=== PATIENT | female | born 1985 | race American Indian/Alaskan Native ===

== ENCOUNTER 2016-12-18 08:47 | Emergency (ER) | payer MEDICAID ==
[2016-12-18 09:20] LABS: Basophils % (Auto) 0.2 % (0.0-1.8); Eosinophils % (Auto) 1.9 % (0.0-4.3); Hematocrit 39.6 % (30.3-42.9); Hemoglobin 12.9 gm/dl (10.1-14.3); Mean Corpuscular HGB Conc 33 % (30-34); Mean Corpuscular Hemoglobin 28 pg (28-32); Mean Corpuscular Volume 84 fl (79-97); Red Blood Count 4.71 M/mm3 (3.65-5.03); White Blood Count 6.5 K/mm3 (4.5-11.0)
[2016-12-18 09:22] LABS: Red Cell Distribution Width 22.8 % (13.2-15.2)
--- NOTE | 2016-12-18 09:34 | Emergency Department Report ---
ED General Adult HPI - General Chief complaint: Alcohol Stated complaint: MARIANNA Time Seen by Provider: 12/18/16 09:12 Source: patient, EMS (ems notes not available at time of chart dictation) Mode of arrival: Stretcher Limitations: Other (patient is intoxicated) - History of Present Illness Initial comments: This is a 31-year-old female, previously unknown sleep. Has a past medical history of thrombocytopenia, alcohol dependence, nonspecific transaminitis. Patient presents to the ER requesting alcohol detox. She reports that she consumes every day. Last drink was this morning. She is not homicidal. She is not suicidal. She has no chest pain or abdominal pain. She has chronic lower back pain. She complains of throat pain. Positive cough. No fever. Denies coingestions. Patient was admitted to the hospital in December 2015, was found to have persistent sinus tachycardia, and macrocytosis , as well as thrombocytopenia, all surmised to be in the context of her chronic alcohol consumption. -: Gradual Quality: aching (throat) Improves with: none Worsens with: none Associated Symptoms: cough - Related Data Previous Rx's Medication Instructions Recorded Last Taken Type Citalopram Hydrobromide [celeXA] 20 mg PO QDAY #30 tablet 01/07/15 Unknown Rx traZODone [Desyrel] 50 mg PO QHS #30 tablet 01/07/15 Unknown Rx Permethrin 5% [Acticin 5% CREAM] 1 applicatio TP ONCE #2 tube 12/18/16 Unknown Rx chlordiazePOXIDE [Librium] 25 mg PO Q8H PRN #15 capsule 12/18/16 Unknown Rx Allergies Allergy/AdvReac Type Severity Reaction Status Date / Time No Known Allergies Allergy Unverified 01/03/15 05:56 ED Review of Systems ROS: Stated complaint: MARIANNA Other details as noted in HPI Constitutional: denies: fever Eyes: denies: vision change ENT: throat pain, congestion. denies: epistaxis Respiratory: denies: cough Cardiovascular: denies: chest pain Gastrointestinal: denies: abdominal pain, nausea, diarrhea Genitourinary: denies: urgency, dysuria, discharge Musculoskeletal: back pain Skin: lesions Psychiatric: denies: homicidal thoughts, suicidal thoughts ED Past Medical Hx - Past Medical History Previous Medical History?: Yes Hx Congestive Heart Failure: No Hx Diabetes: No Hx Psychiatric Treatment: Yes (ETOH abuse) Hx Asthma: No Hx COPD: No Hx HIV: No (pt requested HIV test) - Surgical History Past Surgical History?: No Additional Surgical History: CS/ NOSE SURGERY - Social History Smoking Status: Current Every Day Smoker Substance Use Type: Alcohol - Medications Home Medications: Home Medications Medication Instructions Recorded Confirmed Last Taken Type Citalopram Hydrobromide [celeXA] 20 mg PO QDAY #30 tablet 01/07/15 Unknown Rx traZODone [Desyrel] 50 mg PO QHS #30 tablet 01/07/15 Unknown Rx Permethrin 5% [Acticin 5% CREAM] 1 applicatio TP ONCE #2 tube 12/18/16 Unknown Rx chlordiazePOXIDE [Librium] 25 mg PO Q8H PRN #15 capsule 12/18/16 Unknown Rx ED Physical Exam - General Limitations: No Limitations General appearance: alert, in no apparent distress - Head Head exam: Present: atraumatic, normocephalic - Eye Eye exam: Present: normal appearance, EOMI. Absent: nystagmus - ENT ENT exam: Present: normal exam, normal orophraynx, mucous membranes moist, normal external ear exam - Neck Neck exam: Present: normal inspection, full ROM. Absent: tenderness, meningismus - Respiratory Respiratory exam: Present: normal lung sounds bilaterally. Absent: respiratory distress, wheezes, rales, rhonchi, stridor, chest wall tenderness - Cardiovascular Cardiovascular Exam: Present: normal rhythm, tachycardia, normal heart sounds. Absent: systolic murmur, diastolic murmur, rubs, gallop - GI/Abdominal GI/Abdominal exam: Present: soft, normal bowel sounds. Absent: distended, tenderness, guarding, rebound, rigid, pulsatile mass - Extremities Exam Extremities exam: Present: normal inspection, full ROM, normal capillary refill. Absent: tenderness, pedal edema, joint swelling, calf tenderness - Back Exam Back exam: Present: normal inspection, full ROM. Absent: tenderness, CVA tenderness (R), CVA tenderness (L), muscle spasm, paraspinal tenderness, vertebral tenderness - Neurological Exam Neurological exam: Present: alert, oriented X3, normal gait, other (Extraocular movements intact. Tongue midline. No facial droop. Facial sensation intact to light touch in the V1, V2, V3 distribution bilaterally. 5 and 5 strength in 4 extremities.. Sensation is intact to light touch in 4 extremities.). Absent : motor sensory deficit - Psychiatric Psychiatric exam: Absent: homicidal ideation, suicidal ideation - Skin Skin exam: Present: warm, dry, intact, normal color. Absent: rash ED Course Vital Signs 12/18/16 12/18/16 12/18/16 09:01 09:14 11:04 Temperature 97.8 F 98.7 F Pulse Rate 133 H 133 H Respiratory 14 16 20 Rate Blood Pressure 143/101 Blood Pressure 139/88 [Left] O2 Sat by Pulse 99 99 99 Oximetry 12/18/16 12/18/16 12/18/16 12:04 14:00 16:00 Temperature 98.4 F 98.7 F 98.2 F Pulse Rate 137 H 130 H 80 Respiratory 20 18 18 Rate Blood Pressure Blood Pressure 138/94 136/74 117/80 [Left] O2 Sat by Pulse 100 100 Oximetry - Reevaluation(s) Reevaluation #1: 12/18/16 13:01 Differential diagnosis: Pharyngitis, dehydration, alcohol dependency, alcohol intoxication, nonspecific insect bites Assessment and plan: 31-year-old female who is actively intoxicated and tachycardic, is not required 1013 at this time. Her old medical charts have been reviewed. She will be treated with IV fluids, Librium, Valium. Low score on Centor score, strep screen is negative. She did complain of nonspecific macular rash on her upper and lower extremities , they appear to be consistent with insect bites. They are not superinfected. She can follow-up with an outpatient physician for this, and an international freight forwarder. Reevaluation #2: 12/18/16 13:02 Patient has no chest pain, she has no shortness of breath, no recent trips greater than 4 hours. No recent hospital admissions. Does not take control tablets. Reevaluation #3: 12/18/16 13:16 Sleeping comfortably, resting heart rate improved to 107 beats per minute. Awaiting mental health evaluation. Reevaluation #4: 12/18/16 14:12 Resting heart rate currently 107 bpm. Patient walking with a steady gait. Texting her significant other. The patient was seen and evaluated by mental health professional, who states patient does not meet criteria for inpatient admission for alcohol detox. Patient's boyfriend is coming by to pick her up. He feels comfortable to take care of her. Her tachycardia is improving. She is instructed to discontinue alcohol consumption. She will be discharged with Librium, and outpatient follow -up for detox. Return precautions are reviewed. Reevaluation #5: 12/18/16 15:56 patient still waiting for sober adult to pick her up. i will write her up for discharge, and discussed her case with Dr Kent the oncoming physician. plan is not to d/c until patient is either clinically sober or a sober and responsible adult will pick her her up. ED Medical Decision Making - Lab Data Result diagrams: 12/18/16 09:08 12/18/16 09:08 Vital Signs 12/18/16 12/18/16 12/18/16 09:01 09:14 11:04 Temperature 97.8 F 98.7 F Pulse Rate 133 H 133 H Respiratory 14 16 20 Rate Blood Pressure 143/101 Blood Pressure 139/88 [Left] O2 Sat by Pulse 99 99 99 Oximetry 12/18/16 12:04 Temperature 98.4 F Pulse Rate 137 H Respiratory 20 Rate Blood Pressure Blood Pressure 138/94 [Left] O2 Sat by Pulse Oximetry Lab Results 12/18/16 12/18/16 12/18/16 Range/Units 09:06 09:06 09:08 WBC (4.5-11.0) K/mm3 RBC (3.65-5.03) M/mm3 Hgb (10.1-14.3) gm/dl Hct (30.3-42.9) % MCV (79-97) fl MCH (28-32) pg MCHC (30-34) % RDW (13.2-15.2) % Plt Count (140-440) K/mm3 Lymph % (Auto) (13.4-35.0) % Irion % (Auto) (0.0-7.3) % Eos % (Auto) (0.0-4.3) % Baso % (Auto) (0.0-1.8) % Lymph # (1.2-5.4) K/mm3 Irion # (0.0-0.8) K/mm3 Eos # (0.0-0.4) K/mm3 Baso # (0.0-0.1) K/mm3 Seg Neutrophils % (40.0-70.0) % Seg Neutrophils # (1.8-7.7) K/mm3 Sodium 136 L (137-145) mmol/L Potassium 3.7 (3.6-5.0) mmol/L Chloride 95.9 L (98-107) mmol/L Carbon Dioxide 20 L (22-30) mmol/L Anion Gap 24 mmol/L BUN 5 L (7-17) mg/dL Creatinine 0.5 L (0.7-1.2) mg/dL Estimated GFR > 60 ml/min BUN/Creatinine Ratio 10.00 % Glucose 74 (65-100) mg/dL Calcium 8.6 (8.4-10.2) mg/dL Magnesium (1.7-2.3) mg/dL Total Bilirubin (0.1-1.2) mg/dL Direct Bilirubin (0-0.2) mg/dL AST (5-40) units/L ALT (7-56) units/L Alkaline Phosphatase (35-129) units/L Total Protein (6.3-8.2) g/dL Albumin (3.9-5) g/dL Albumin/Globulin Ratio % HCG, Qual (Negative) Urine Color Yellow (Yellow) Urine Turbidity Clear (Clear) Urine pH 6.0 (5.0-7.0) Ur Specific Novelty 1.005 (1.003-1.030) Urine Protein <15 mg/dl (Negative) mg/dL Urine Glucose (UA) Neg (Negative) mg/dL Urine Ketones Neg (Negative) mg/dL Urine Blood Neg (Negative) Urine Nitrite Neg (Negative) Ur Reducing Substances Not Reportable Urine Bilirubin Neg (Negative) Urine Ictotest Not Reportable Urine Urobilinogen < 2.0 (<2.0) mg/dL Ur Leukocyte Esterase Neg (Negative) Urine WBC (Auto) 1.0 (0.0-6.0) /HPF Urine RBC (Auto) 1.0 (0.0-6.0) /HPF U Epithel Cells (Auto) 4.0 (0-13.0) /HPF Urine HCG, Qual Negative (Negative) Urine Opiates Screen Presumptive negative Urine Methadone Screen Presumptive negative Ur Barbiturates Screen Presumptive negative Ur Phencyclidine Scrn Presumptive negative Ur Amphetamines Screen Presumptive negative U Benzodiazepines Scrn Presumptive negative Urine Cocaine Screen Presumptive negative U Marijuana (THC) Screen Presumptive negative Drugs of Abuse Note Disclamer Plasma/Serum Alcohol (0-0.07) gm% 12/18/16 12/18/16 12/18/16 Range/Units 09:08 09:08 09:08 WBC 6.5 (4.5-11.0) K/mm3 RBC 4.71 (3.65-5.03) M/mm3 Hgb 12.9 (10.1-14.3) gm/dl Hct 39.6 (30.3-42.9) % MCV 84 (79-97) fl MCH 28 (28-32) pg MCHC 33 (30-34) % RDW 22.8 H (13.2-15.2) % Plt Count 179 (140-440) K/mm3 Lymph % (Auto) 40.2 H (13.4-35.0) % Irion % (Auto) 11.7 H (0.0-7.3) % Eos % (Auto) 1.9 (0.0-4.3) % Baso % (Auto) 0.2 (0.0-1.8) % Lymph # 2.6 (1.2-5.4) K/mm3 Irion # 0.8 (0.0-0.8) K/mm3 Eos # 0.1 (0.0-0.4) K/mm3 Baso # 0.0 (0.0-0.1) K/mm3 Seg Neutrophils % 46.0 (40.0-70.0) % Seg Neutrophils # 3.0 (1.8-7.7) K/mm3 Sodium (137-145) mmol/L Potassium (3.6-5.0) mmol/L Chloride (98-107) mmol/L Carbon Dioxide (22-30) mmol/L Anion Gap mmol/L BUN (7-17) mg/dL Creatinine (0.7-1.2) mg/dL Estimated GFR ml/min BUN/Creatinine Ratio % Glucose (65-100) mg/dL Calcium (8.4-10.2) mg/dL Magnesium 2.0 (1.7-2.3) mg/dL Total Bilirubin (0.1-1.2) mg/dL Direct Bilirubin (0-0.2) mg/dL AST (5-40) units/L ALT (7-56) units/L Alkaline Phosphatase (35-129) units/L Total Protein (6.3-8.2) g/dL Albumin (3.9-5) g/dL Albumin/Globulin Ratio % HCG, Qual (Negative) Urine Color (Yellow) Urine Turbidity (Clear) Urine pH (5.0-7.0) Ur Specific Novelty (1.003-1.030) Urine Protein (Negative) mg/dL Urine Glucose (UA) (Negative) mg/dL Urine Ketones (Negative) mg/dL Urine Blood (Negative) Urine Nitrite (Negative) Ur Reducing Substances Urine Bilirubin (Negative) Urine Ictotest Urine Urobilinogen (<2.0) mg/dL Ur Leukocyte Esterase (Negative) Urine WBC (Auto) (0.0-6.0) /HPF Urine RBC (Auto) (0.0-6.0) /HPF U Epithel Cells (Auto) (0-13.0) /HPF Urine HCG, Qual (Negative) Urine Opiates Screen Urine Methadone Screen Ur Barbiturates Screen Ur Phencyclidine Scrn Ur Amphetamines Screen U Benzodiazepines Scrn Urine Cocaine Screen U Marijuana (THC) Screen Drugs of Abuse Note Plasma/Serum Alcohol 0.37 H (0-0.07) gm% 12/18/16 12/18/16 Range/Units 09:08 11:54 WBC (4.5-11.0) K/mm3 RBC (3.65-5.03) M/mm3 Hgb (10.1-14.3) gm/dl Hct (30.3-42.9) % MCV (79-97) fl MCH (28-32) pg MCHC (30-34) % RDW (13.2-15.2) % Plt Count (140-440) K/mm3 Lymph % (Auto) (13.4-35.0) % Irion % (Auto) (0.0-7.3) % Eos % (Auto) (0.0-4.3) % Baso % (Auto) (0.0-1.8) % Lymph # (1.2-5.4) K/mm3 Irion # (0.0-0.8) K/mm3 Eos # (0.0-0.4) K/mm3 Baso # (0.0-0.1) K/mm3 Seg Neutrophils % (40.0-70.0) % Seg Neutrophils # (1.8-7.7) K/mm3 Sodium (137-145) mmol/L Potassium (3.6-5.0) mmol/L Chloride (98-107) mmol/L Carbon Dioxide (22-30) mmol/L Anion Gap mmol/L BUN (7-17) mg/dL Creatinine (0.7-1.2) mg/dL Estimated GFR ml/min BUN/Creatinine Ratio % Glucose (65-100) mg/dL Calcium (8.4-10.2) mg/dL Magnesium (1.7-2.3) mg/dL Total Bilirubin 0.2 (0.1-1.2) mg/dL Direct Bilirubin < 0.2 (0-0.2) mg/dL AST 33 (5-40) units/L ALT 24 (7-56) units/L Alkaline Phosphatase 77 (35-129) units/L Total Protein 8.1 (6.3-8.2) g/dL Albumin 4.2 (3.9-5) g/dL Albumin/Globulin Ratio 1.1 % HCG, Qual Negative (Negative) Urine Color (Yellow) Urine Turbidity (Clear) Urine pH (5.0-7.0) Ur Specific Novelty (1.003-1.030) Urine Protein (Negative) mg/dL Urine Glucose (UA) (Negative) mg/dL Urine Ketones (Negative) mg/dL Urine Blood (Negative) Urine Nitrite (Negative) Ur Reducing Substances Urine Bilirubin (Negative) Urine Ictotest Urine Urobilinogen (<2.0) mg/dL Ur Leukocyte Esterase (Negative) Urine WBC (Auto) (0.0-6.0) /HPF Urine RBC (Auto) (0.0-6.0) /HPF U Epithel Cells (Auto) (0-13.0) /HPF Urine HCG, Qual (Negative) Urine Opiates Screen Urine Methadone Screen Ur Barbiturates Screen Ur Phencyclidine Scrn Ur Amphetamines Screen U Benzodiazepines Scrn Urine Cocaine Screen U Marijuana (THC) Screen Drugs of Abuse Note Plasma/Serum Alcohol (0-0.07) gm% - EKG Data 12/18/16 13:02 sinus tachycardia, 137 bpm, normal intervals, normal axis, not consistent with STEMI. Critical care attestation.: If time is entered above; I have spent that time in minutes in the direct care of this critically ill patient, excluding procedure time. ED Disposition Clinical Impression: Alcohol dependency Qualifiers: Substance use status: uncomplicated Qualified Code(s): F10.20 - Alcohol dependence, uncomplicated Disposition: DISCHARGED TO HOME OR SELFCARE Is pt being admited?: No Does the pt Need Aspirin: No Condition: Stable Instructions: Abuse of Alcohol (ED), Insect Bite or Sting (ED) Additional Instructions: Discontinue consumption of alcohol. Take Librium as needed for symptoms of withdrawal (anxiety, tremor, nausea, weakness.) Follow up with the outpatient facilities that have been referred to for alcohol detoxification. Strep screen did not indicate strep, culture is pending. Have a primary care doctor contact the medical records department to obtain culture results. Used the permethrin cream as directed on day 1, and then again on day 7 if you feel like the rash is still present. Wash all clothing and linens with hot water and soap. I recommend having the apartment/house where he lives evaluated by an international freight forwarder for possible bed bugs. Dr. Finn is a local primary care doctor. [facility] is a local medical clinic. Follow up with either a primary care doctor or a local primary care clinic within the next 2 weeks. Return to the ER right away with fevers or chills, chest pain or shortness of breath, nausea or vomiting, inability to tolerate liquid feeds, homicidality, suicidality. Prescriptions: Permethrin 5% [Acticin 5% CREAM] 1 applicatio TP ONCE #2 tube chlordiazePOXIDE [Librium] 25 mg PO Q8H PRN #15 capsule PRN Reason: Alcohol Withdrawal Referrals: BENJAMIN RAMÍREZ MD [Primary Care Provider] - 3-5 Days CLAYTON FINN MD [Staff Physician] - 3-5 Days [facility] [Provider Group] - 3-5 Days
[2016-12-18 09:36] LABS: Anion Gap 24 mmol/L; Blood Urea Nitrogen 5 mg/dL (7-17); Calcium 8.6 mg/dL (8.4-10.2); Carbon Dioxide 20 mmol/L (22-30); Chloride 95.9 mmol/L (98-107); Glucose 74 mg/dL (65-100); Potassium 3.7 mmol/L (3.6-5.0); Sodium 136 mmol/L (137-145)
[2016-12-18 09:47] LABS: Mean Platelet Volume 8.6 fl (6-12); Platelet Count 179 K/mm3 (140-440)
[2016-12-18 10:54] LABS: Urine Drugs of Abuse Note Disclamer
[2016-12-18 11:03] LABS: Bilirubin,Urine NEG (Negative); Blood,Urine NEG (Negative); Ketones,Urine NEG (Negative); Leukocyte Esterase,Urine NEG (Negative); Nitrite,Urine NEG (Negative); Protein,Urine <15 mg/dL mg/dL (Negative); Urobilinogen,Urine < 2.0 mg/dL (<2.0)
[2016-12-18] MEDS ORDERED: LIBRIUM PO ONE (11:26)
[2016-12-18] MEDS ORDERED: VALIUM IV ONE (11:26)
[2016-12-18] MEDS ORDERED: TORADOL IV ONE (11:45)
[2016-12-18] MEDS ORDERED: NACL 0.9% 1000 ML 2,000 ML ONE (11:59)
[2016-12-18] MEDS ORDERED: NACL 0.9% 500 ML IV SCH ×2 (12:00→14:00)
[2016-12-18 12:27] LABS: Alanine Aminotransferase 24 units/L (7-56); Albumin 4.2 g/dL (3.9-5); Albumin/Globulin Ratio 1.1 %; Alkaline Phosphatase 77 units/L (35-129); Bilirubin,Direct < 0.2 mg/dL (0-0.2); Bilirubin,Total 0.2 mg/dL (0.1-1.2); Total Protein 8.1 g/dL (6.3-8.2)
[2016-12-18 13:44] LABS: INR 1.12 (0.87-1.13)
[2016-12-18 16:43] VITALS: BP 117/80
== END 2016-12-18 16:30 | disposition home or self-care (01) ==
LOC: ED 08:47
DX: F10.20 Alcohol dependence, uncomplicated (principal); F17.200 Nicotine dependence, unspecified, uncomplicated
CPT/HCPCS: 36415; 80048; 80074; 80307; 81001; 81025; 83735; 84703; 85025; 85610; 87116; 87430; 93005; 93010; 96361; 96374; 96375; 99284; G0480; J1885; J3360; J7030; 80320

== ENCOUNTER 2019-05-01 11:36 | Emergency (ER) | payer MEDICAID ==
--- NOTE | 2019-05-01 11:50 | Emergency Department Report ---
Blank Doc - Documentation Documentation: This is a 34-year-old female that presents with seizure last night. Stated is having alcohol withdraws with last alcohol was 2 nights ago. This initial assessment/diagnostic orders/clinical plan/treatment(s) is/are subject to change based on patient's health status, clinical progression and re- assessment by fellow clinical providers in the ED. Further treatment and workup at subsequent clinical providers discretion. Patient/guardians urged not to elope from the ED as their condition may be serious if not clinically assessed and managed. Initial orders include: 1- Patient sent to MAIN ED for further evaluation and treatment 2- labs 3- EKG 4- UA
[2019-05-01 12:54] LABS: Basophils % (Auto) 0.3 % (0.0-1.8); Eosinophils % (Auto) 0.2 % (0.0-4.3); Hematocrit 42.5 % (30.3-42.9); Hemoglobin 14.7 gm/dl (10.1-14.3); Lymphocytes # (Auto) 1.8 K/mm3 (1.2-5.4); Lymphocytes % (Auto) 17.3 % (13.4-35.0); Mean Corpuscular HGB Conc 35 % (30-34); Mean Corpuscular Volume 94 fl (79-97); Monocytes # (Auto) 0.4 K/mm3 (0.0-0.8); Monocytes % (Auto) 4.1 % (0.0-7.3); Platelet Count 142 K/mm3 (140-440); Red Blood Count 4.55 M/mm3 (3.65-5.03); Red Cell Distribution Width 14.4 % (13.2-15.2)
[2019-05-01 13:03] LABS: Alanine Aminotransferase 41 units/L (7-56); Albumin 4.3 g/dL (3.9-5); BUN/Creatinine Ratio 14; Blood Urea Nitrogen 7 mg/dL (7-17); Calcium 8.8 mg/dL (8.4-10.2); Hemolysis Index 12
[2019-05-01 13:05] LABS: INR 0.91 (0.87-1.13)
[2019-05-01] MEDS ORDERED: ATIVAN IV PRN ×3 (14:51)
--- NOTE | 2019-05-01 15:19 | Emergency Department Report ---
HPI - General Chief Complaint: Alcohol Time Seen by Provider: 05/01/19 11:49 - HPI HPI: 34-year-old -[place] female presents to the emergency department with complaint of having a seizure this morning most likely due to alcohol withdrawal. The patient has a history of alcohol abuse and dependence and last had a drink about 2 days ago. She says that she does have a history of alcohol withdrawal seizures in the past. She otherwise has a past medical history of hypertension and low platelets. She complains of some nausea without vomiting, and some upper abdominal pain radiating towards the back. She has not taken, nor received anything, for symptoms prior to arrival today. Denies having a primary care physician. She denies any illicit drug use. No recent travel or sick contacts at home. ED Past Medical Hx - Past Medical History Hx Congestive Heart Failure: No Hx Diabetes: No Hx Psychiatric Treatment: Yes (ETOH abuse) Hx Asthma: No Hx COPD: No Hx HIV: No (pt requested HIV test) - Surgical History Additional Surgical History: CS/ NOSE SURGERY - Social History Smoking Status: Current Every Day Smoker Substance Use Type: Alcohol - Medications Home Medications: Home Medications Medication Instructions Recorded Confirmed Last Taken Type Citalopram Hydrobromide [celeXA] 20 mg PO QDAY #30 tablet 01/07/15 Unknown Rx traZODone [Desyrel] 50 mg PO QHS #30 tablet 01/07/15 Unknown Rx Permethrin 5% [Acticin 5% CREAM] 1 applicatio TP ONCE #2 tube 12/18/16 Unknown Rx Nitrofurantoin Madison/M-Cryst 100 mg PO Q12HR #14 capsule 05/01/19 Unknown Rx [Macrobid CAP] chlordiazePOXIDE [Librium] 50 mg PO Q8H PRN #20 capsule 05/01/19 Unknown Rx Sulfamethoxazole/Trimethoprim 1 each PO BID #14 tablet 05/05/19 Unknown Rx [Bactrim DS TAB] ED Review of Systems ROS: Stated complaint: ALCOHOL WITHDRAWL Other details as noted in HPI Comment: All other systems reviewed and negative Constitutional: denies: chills, fever Eyes: denies: eye pain, vision change ENT: denies: ear pain, throat pain Respiratory: cough. denies: shortness of breath Cardiovascular: denies: chest pain, palpitations Gastrointestinal: abdominal pain, nausea Genitourinary: denies: dysuria, discharge Musculoskeletal: denies: joint swelling, arthralgia Skin: denies: rash, lesions Neurological: other (seizure). denies: weakness, numbness Physical Exam - Physical Exam Vital Signs: Vital Signs 05/01/19 11:50 Temperature 97.9 F Pulse Rate 142 H Respiratory 18 Rate Blood Pressure 136/109 [Right] O2 Sat by Pulse 99 Oximetry Physical Exam: GENERAL: The patient is well-developed well-nourished. HENT: Normocephalic. Atraumatic. Patient has moist mucous membranes. EYES: Extraocular motions are intact. Pupils equal reactive to light bilate rally. NECK: Supple. Trachea is midline. CHEST/LUNGS: Clear to auscultation. There is no respiratory distress noted. HEART/CARDIOVASCULAR: Regular. There is mild tachycardia. There is no murmur. ABDOMEN: Abdomen is soft, nontender. Patient has normal bowel sounds. There is no abdominal distention. SKIN: Skin is warm and dry. NEURO: The patient is awake, alert, and oriented. The patient is cooperative. The patient has no focal neurologic deficits. The patient has normal speech. Cranial nerves II through XII grossly intact. MUSCULOSKELETAL: There is no tenderness or deformity. There is no limitation range of motion. There is no evidence of acute injury. ED Course Vital Signs 05/01/19 11:50 Temperature 97.9 F Pulse Rate 142 H Respiratory 18 Rate Blood Pressure 136/109 [Right] O2 Sat by Pulse 99 Oximetry ED Medical Decision Making - Lab Data Result diagrams: 05/01/19 12:04 05/01/19 12:04 - EKG Data -: EKG Interpreted by Al EKG shows normal: sinus rhythm (PACs), axis, intervals, QRS complexes, ST-T waves Rate: tachycardia (115 bpm) - EKG Data When compared to previous EKG there are: previous EKG unavailable Interpretation: other (Sinus Tach, PACs, NO STEMI) - Medical Decision Making Patient presents to the emergency department with withdrawal and alleged seizure earlier today. Since being in the emergency department she has been awake, alert, oriented and in no acute distress other than some tachycardia. There is no focal, motor or sensory deficits in her cranial nerves are intact. Patient's labs were mostly unremarkable except for a mild urinary tract infection. She was placed on the alcohol withdrawal protocol and required only one small dose of Ativan at the beginning of her visit for some nausea and shakiness. Blood alcohol level was 0.04 which is already under the legal limit. Since there is been no further seizure-like activity and no neurological deficits, I did not feel that any CT imaging of the head was necessary at this time. She was given a banana bag for IV fluid resuscitation and a dose of Rocephin for her urinary tract infection.the patient has been reevaluated multiple times for multiple hours and appears stable. The patient has been given some outpatient referrals to assist with her alcohol dependence indication would like to pursue rehabilitation and detox. She will be placed on Librium to assist with her dependence and withdrawal. She will return to the ER with any worsening of her symptoms or any acute distress. Prior to discharge, the patient has been seen ambulatory in the emergency department and she both appears and feels stable. As I was trying to finish this chart, I noticed the results of the patient's urine culture showing Klebsiella. The use of Macrobid was indeterminate and therefore the patient will be started on a different susceptible antibiotic. We left a voicemail on the patient's given phone number without any response. She will be sent a certified letter and the antibiotic prescription. Critical Care Time: No Critical care attestation.: If time is entered above; I have spent that time in minutes in the direct care of this critically ill patient, excluding procedure time. ED Disposition Clinical Impression: UTI (urinary tract infection) Alcohol dependency Qualifiers: Substance use status: unspecified alcohol-induced disorder Qualified Code(s): F10.29 - Alcohol dependence with unspecified alcohol-induced disorder Alcohol withdrawal seizure Qualifiers: Complication of substance-induced condition: uncomplicated Qualified Code(s): F10.230 - Alcohol dependence with withdrawal, uncomplicated Alcohol withdrawal Qualifiers: Complication of substance-induced condition: uncomplicated Qualified Code(s): F10.230 - Alcohol dependence with withdrawal, uncomplicated Disposition: DC-01 TO HOME OR SELFCARE Is pt being admited?: No Condition: Stable Instructions: Urinary Tract Infection in Women (ED), Abuse of Alcohol (ED), Alcohol Withdrawal (ED) Additional Instructions: Please follow up with a primary care physician. I am giving you three different referrals for outpatient facilities to assist with your alcohol dependence for rehabilitation and detox. I'm starting you on some medication, Librium, to assist with your alcohol withdrawal. Return to the emergency Department with any worsening of your symptoms or any acute distress. You have been prescribed a medication that is sedating and therefore should not be taken prior to driving, working, and responsible for children and in no way should be mixed with alcohol of any quantity. Prescriptions: Sulfamethoxazole/Trimethoprim [Bactrim DS TAB] 1 each PO BID #14 tablet chlordiazePOXIDE [Librium] 50 mg PO Q8H PRN #20 capsule PRN Reason: Alcohol Withdrawal Nitrofurantoin [place]/M-Cryst [Macrobid CAP] 100 mg PO Q12HR #14 capsule Referrals: [facility] [Outside] - 2-3 Days
[2019-05-01] MEDS ORDERED: VITAMIN B-1 100 MG, FOLVITE 1 MG, INFUVITE 10 ML in NACL 0.9% 1000 ML 1,000 ML IV ONE (16:00)
[2019-05-01 16:28] LABS: Bacteria,Urine 2+ /HPF (Negative); Bilirubin,Urine NEG (Negative); Blood,Urine LG (Negative); Color,Urine Amber (Yellow); Hyaline Casts,Urine 4 /LPF; Mucus,Urine 3+ /HPF
[2019-05-01 16:29] LABS: RBC,Urine > 182.0 /HPF (0.0-6.0)
[2019-05-01 16:33] LABS: Amphetamine Screen,Urine PRESUMPTIVE NEGATIVE; Benzodiazepines Screen,Urine PRESUMPTIVE NEGATIVE; Cannabinoid Screen,Urine PRESUMPTIVE NEGATIVE; Cocaine Screen,Urine PRESUMPTIVE NEGATIVE; Methadone Screen,Urine PRESUMPTIVE NEGATIVE; Opiate Screen,Urine PRESUMPTIVE NEGATIVE
[2019-05-01] MEDS ORDERED: ROCEPHIN/NS 1 GM/50 ML 1 GM/50 ML BAG IV ONE (16:52)
[2019-05-01 20:02] VITALS: BP 149/98
== END 2019-05-01 21:21 | disposition home or self-care (01) ==
LOC: ED 11:36
DX: F10.29 Alcohol dependence with unspecified alcohol-induced disorder (principal); F10.239 Alcohol dependence with withdrawal, unspecified; R56.9 Unspecified convulsions; N39.0 Urinary tract infection, site not specified; F17.200 Nicotine dependence, unspecified, uncomplicated; Z79.899 Other long term (current) drug therapy
CPT/HCPCS: 36415; 80053; 80307; 81001; 83690; 83735; 84100; 85025; 85610; 85730; 87076; 87086; 87186; 93005; 93010; 96365; 96366; 96368; 96375; 99284; G0480; J0696; J2060; J3411; J7030; 80320

== ENCOUNTER 2019-05-23 17:40 | Inpatient (IN) | payer MEDICAID ==
[2019-05-23] MEDS ORDERED: ATIVAN IV PRN (18:25)
[2019-05-23] MEDS ORDERED: VITAMIN B-1 100 MG, FOLVITE 1 MG, INFUVITE 10 ML in NACL 0.9% 1000 ML 1,000 ML IV ONE (18:25)
--- NOTE | 2019-05-23 18:30 | Emergency Department Report ---
HPI - General Chief Complaint: Alcohol Time Seen by Provider: 05/23/19 18:19 - HPI HPI: Room 26 The patient is a 34-year-old female presenting with a chief complaint of "alcohol withdrawal." The patient states she has had cramping/drawing up of bilateral hands which began today. Patient states this has happened to her in the past during alcohol draw. The patient states she can drink up to approximately 1/5 of alcohol daily. Patient states her last consumption occurred 2 days ago Location: [See above] Duration: [See above] Quality: [See above] Severity: [See above] Modifying factors: [see above] Context: [see above] Mode of transportation: [not driving] ED Past Medical Hx - Past Medical History Previous Medical History?: Yes Hx Psychiatric Treatment: Yes (ETOH abuse) - Surgical History Past Surgical History?: Yes Additional Surgical History: CS/ NOSE SURGERY - Family History Family history: no significant - Social History Smoking Status: Current Every Day Smoker (1/2 pack per day) Substance Use Type: None (denies illicit drug use), Alcohol - Medications Home Medications: Home Medications Medication Instructions Recorded Confirmed Last Taken Type Citalopram Hydrobromide [celeXA] 20 mg PO QDAY #30 tablet 01/07/15 Unknown Rx traZODone [Desyrel] 50 mg PO QHS #30 tablet 01/07/15 Unknown Rx Permethrin 5% [Acticin 5% CREAM] 1 applicatio TP ONCE #2 tube 12/18/16 Unknown Rx Nitrofurantoin Routt/M-Cryst 100 mg PO Q12HR #14 capsule 05/01/19 Unknown Rx [Macrobid CAP] chlordiazePOXIDE [Librium] 50 mg PO Q8H PRN #20 capsule 05/01/19 Unknown Rx Sulfamethoxazole/Trimethoprim 1 each PO BID #14 tablet 05/05/19 Unknown Rx [Bactrim DS TAB] ED Review of Systems ROS: Stated complaint: HAND PAIN Other details as noted in HPI Constitutional: no symptoms reported Eyes: denies: eye pain ENT: denies: throat pain Respiratory: no symptoms reported Cardiovascular: denies: chest pain Endocrine: no symptoms reported Gastrointestinal: denies: abdominal pain Genitourinary: denies: dysuria Musculoskeletal: back pain, myalgia Neurological: denies: headache Physical Exam - Physical Exam Vital Signs: Vital Signs 05/23/19 05/23/19 17:55 18:14 Temperature 97.8 F Pulse Rate 115 H Respiratory 20 20 Rate Blood Pressure 156/86 O2 Sat by Pulse 100 100 Oximetry Physical Exam: GENERAL: The patient is well-developed well-nourished female lying in stretcher not appearing to be in acute distress. [] HEENT: Normocephalic. Atraumatic. Extraocular motions are intact. Patient has moist mucous membranes. NECK: Supple. Trachea midline CHEST/LUNGS: Clear to auscultation. There is no respiratory distress noted. HEART/CARDIOVASCULAR: Regular. There is tachycardia. There is no gallop rub or murmur. 2+ bilateral radial pulses ABDOMEN: Abdomen is soft, nontender. Patient has normal bowel sounds. There is no abdominal distention. SKIN: There is no rash. There is no edema. There is no diaphoresis. NEURO: The patient is awake, alert, and oriented. The patient is cooperative. The patient has no focal neurologic deficits. The patient has normal speech MUSCULOSKELETAL: Both hands are drawn up and flexed at the wrist. Patient states she is unable to relax her hands ED Course Vital Signs 05/23/19 05/23/19 17:55 18:14 Temperature 97.8 F Pulse Rate 115 H Respiratory 20 20 Rate Blood Pressure 156/86 O2 Sat by Pulse 100 100 Oximetry ED Medical Decision Making - Lab Data Result diagrams: 05/23/19 18:35 05/23/19 18:35 - Differential Diagnosis alcohol withdrawal, hypomagnesemia Critical care attestation.: If time is entered above; I have spent that time in minutes in the direct care of this critically ill patient, excluding procedure time. ED Disposition Clinical Impression: Alcohol withdrawal, Hypomagnesemia, Hypokalemia Disposition: OP ADMIT IP TO THIS HOSP Is pt being admited?: Yes Does the pt Need Aspirin: Yes Condition: Stable Time of Disposition: 20:06 (hospitalist paged (Dr Tejeda))
[2019-05-23] MEDS: ATIVAN IV PRN ×3 (18:47→21:05)
[2019-05-23 19:06] LABS: Basophils % (Auto) 0.2 % (0.0-1.8); Eosinophils % (Auto) 0.3 % (0.0-4.3); Hematocrit 36.4 % (30.3-42.9); Hemoglobin 12.5 gm/dl (10.1-14.3); Lymphocytes # (Auto) 1.1 K/mm3 (1.2-5.4); Lymphocytes % (Auto) 13.7 % (13.4-35.0); Mean Corpuscular HGB Conc 34 % (30-34); Mean Corpuscular Volume 92 fl (79-97); Monocytes # (Auto) 0.5 K/mm3 (0.0-0.8); Monocytes % (Auto) 6.1 % (0.0-7.3); Platelet Count 170 K/mm3 (140-440); Red Blood Count 3.98 M/mm3 (3.65-5.03); Red Cell Distribution Width 15.2 % (13.2-15.2)
[2019-05-23 19:22] LABS: Alanine Aminotransferase 26 units/L (7-56); Albumin 4.2 g/dL (3.9-5); BUN/Creatinine Ratio 12; Blood Urea Nitrogen 6 mg/dL (7-17); Calcium 8.6 mg/dL (8.4-10.2); Hemolysis Index 14
[2019-05-23] MEDS ORDERED: MAGNESIUM SULFATE 2GM/50ML 2 GM/50 ML BAG IV ONE (20:03)
[2019-05-23] MEDS ORDERED: K-DUR PO ONE (20:03)
--- NOTE | 2019-05-23 22:49 | History and Physical Report ---
History of Present Illness Date of examination: 05/23/19 History of present illness: 34-year-old and a history of alcohol abuse comes emergency room because her hands were locked up and crampy. The emergency room shows sound to be in alcohol withdrawal, started on the CIWA protocol with IV Ativan, currently she is sedated, difficult to obtain a history, review of system PAST MEDICAL HISTORY:alcohol abuse PAST SURGICAL HISTORY: NONE SOCIAL HISTORY: Drinks 1 gallon of vodka/day, unknown drugs, smoke 1 pack/day FAMILY HISTORY: Hypertension Medications and Allergies Allergies Allergy/AdvReac Type Severity Reaction Status Date / Time No Known Allergies Allergy Unverified 01/03/15 05:56 Home Medications Medication Instructions Recorded Confirmed Last Taken Type Citalopram Hydrobromide [celeXA] 20 mg PO QDAY #30 tablet 01/07/15 Unknown Rx traZODone [Desyrel] 50 mg PO QHS #30 tablet 01/07/15 Unknown Rx Permethrin 5% [Acticin 5% CREAM] 1 applicatio TP ONCE #2 tube 12/18/16 Unknown Rx Nitrofurantoin [place]/M-Cryst 100 mg PO Q12HR #14 capsule 05/01/19 Unknown Rx [Macrobid CAP] chlordiazePOXIDE [Librium] 50 mg PO Q8H PRN #20 capsule 05/01/19 Unknown Rx Sulfamethoxazole/Trimethoprim 1 each PO BID #14 tablet 05/05/19 Unknown Rx [Bactrim DS TAB] Active Meds: Active Medications Potassium Chloride (Kcl 10meq/100ml) 10 meq in 100 mls @ 100 mls/hr IV Q1H ROSALINO Stop: 05/23/19 22:59 Lorazepam (Ativan) 2 mg IV Q1HR PRN PRN Reason: CIWA-Ar 8-15 Last Admin: 05/23/19 20:41 Dose: 2 mg Documented by: Lorazepam (Ativan) 4 mg IV Q1HR PRN PRN Reason: CIWA-Ar 16-25 Last Admin: 05/23/19 21:06 Dose: 4 mg Documented by: Lorazepam (Ativan) 4 mg IV Q15MIN PRN PRN Reason: CIWA-Ar >25 Last Admin: 05/23/19 18:47 Dose: 4 mg Documented by: Exam - Physical Exam Narrative exam: General Apperance: The patient lying in bed, breathing comfortable HEENT: Normocephalic, atraumatic. Pupils equally round and reactive to light, EOMI, no sclericterus or JVD or thyromegaly or nodule. , no carotid bruit, mucous membranes moist, no exudate or erythema Heart: S1-S2, regular is rhythm Lungs: Clear to auscultation bilaterally, breathing comfortable Abdomen: Positive bowel sounds, soft, nontender, nondistended, no organomegaly Extremities: No edema cyanosis clubbing Skin: no rash, nodule, warm and dry Neuro: sedated - Constitutional Vitals: Temp Pulse Resp BP Pulse Ox 97.8 F 105 H 19 161/99 99 05/23/19 17:55 05/23/19 20:00 05/23/19 20:00 05/23/19 21:00 05/23/19 21:00 Results - Labs CBC & Chem 7: 05/23/19 18:35 05/23/19 18:35 Labs: Abnormal lab results 05/23/19 05/23/19 Range/Units 18:35 18:35 Lymph # 1.1 L (1.2-5.4) K/mm3 Seg Neutrophils % 79.7 H (40.0-70.0) % Potassium 2.7 L* (3.6-5.0) mmol/L Chloride 95.3 L (98-107) mmol/L BUN 6 L (7-17) mg/dL Creatinine 0.5 L (0.7-1.2) mg/dL Magnesium 1.10 L (1.7-2.3) mg/dL Total Creatine Kinase 345 H (30-135) units/L Assessment and Plan Assessment Alcohol withdrawal Hypokalemia Hypomagnesemia Alcohol abuse Plan Start IV fluid,CIWA protocol with IV Ativan Start thiamine, folic acid, DVT prophylaxis Potassium and magnesium repleted
[2019-05-23] MEDS ORDERED: TYLENOL PO PRN (22:58)
[2019-05-23] MEDS ORDERED: ZOFRAN IV PRN (22:58)
[2019-05-23] MEDS ORDERED: SODIUM CHLORIDE FLUSH SYRINGE 10 ML IV PRN (22:58)
[2019-05-23] MEDS ORDERED: NACL 0.45% 1000 ML 1,000 ML IV SCH (23:00)
[2019-05-23] MEDS ORDERED: NACL 0.9% 1000 ML 1,000 ML IV SCH (23:00)
[2019-05-23] MEDS: KCL 10MEQ/100ML 10 MEQ/100 ML BAG IV SCH (23:23)
[2019-05-23] MEDS ORDERED: NACL 0.9% 1000 ML 1,000 ML ONE (23:54)
[2019-05-24] MEDS: KCL 10MEQ/100ML 10 MEQ/100 ML BAG IV SCH (01:34)
[2019-05-24] MEDS ORDERED: APRESOLINE IV PRN (03:21)
[2019-05-24] MEDS: ATIVAN IV PRN ×3 (05:09→12:58)
[2019-05-24 06:10] LABS: Basophils % (Auto) 0.4 % (0.0-1.8); Eosinophils # (Auto) 0.1 K/mm3 (0.0-0.4); Eosinophils % (Auto) 1.6 % (0.0-4.3); Lymphocytes # (Auto) 1.9 K/mm3 (1.2-5.4); Lymphocytes % (Auto) 30.9 % (13.4-35.0); Mean Corpuscular HGB Conc 33 % (30-34); Mean Corpuscular Volume 93 fl (79-97); Monocytes # (Auto) 0.5 K/mm3 (0.0-0.8); Monocytes % (Auto) 7.8 % (0.0-7.3); Platelet Count 158 K/mm3 (140-440); Red Cell Distribution Width 14.8 % (13.2-15.2)
[2019-05-24 06:31] LABS: BUN/Creatinine Ratio 10; Blood Urea Nitrogen 4 mg/dL (7-17); Calcium 8.1 mg/dL (8.4-10.2); Hemolysis Index 90
[2019-05-24 08:09] VITALS: BP 147/93
[2019-05-24] MEDS ORDERED: VITAMIN B-1 PO SCH (10:00)
[2019-05-24] MEDS ORDERED: SODIUM CHLORIDE FLUSH SYRINGE 10 ML IV SCH (10:00)
[2019-05-24] MEDS ORDERED: FOLVITE PO SCH (10:00)
--- NOTE | 2019-05-24 10:33 | Progress Note ---
Assessment and Plan Assessment and plan: --Acute metabolic encephalopathy; Secondary to alcohol withdrawal symptoms, supportive care, CIWA protocol --Alcohol withdrawal symptoms; Continue CIWA protocol, fluids, thiamine and folic acid Seizure precautions --Lactic acidosis; resolved --Mild hyponatremia; closely monitor electrolytes avoid free water --Hypomagnesemia; magnesium sulfate and follow levels --Chronic alcohol use; strongly advised to quit alcohol intake And seek alcohol rehabilitation --Ongoing tobacco use; Smoking cessation counseling and nicotine patch as needed --DVT prophylaxis; Lovenox Closely monitor the patient admitted to Center management as needed Plan of care reviewed with the patient, History Interval history: Patient seen and examined medical records reviewed Admitted with altered level of consciousness and alcohol withdrawal On CIWA protocol Patient closely lethargic History of a cancerous pointing approximately Vital signs noted Hospitalist Physical - Constitutional Vitals: Temp Pulse Resp BP Pulse Ox 98.7 F 75 18 147/93 100 05/24/19 07:25 05/24/19 04:52 05/24/19 07:25 05/24/19 07:25 05/24/19 03:59 General appearance: Present: no acute distress, well-nourished, other (mild tremulousness mild tremulousness) - EENT Eyes: Present: PERRL, EOM intact - Neck Neck: Present: supple, normal ROM - Respiratory Respiratory effort: normal Respiratory: bilateral: diminished, negative: rales, rhonchi, wheezing - Cardiovascular Rhythm: regular Heart Sounds: Present: S1 & S2 - Extremities Extremities: no ischemia, No edema - Abdominal General gastrointestinal: soft, non-tender, non-distended, normal bowel sounds - Integumentary Integumentary: Present: clear, warm - Psychiatric Psychiatric: appropriate mood/affect, agitated, other (confused at times) - Neurologic Neurologic: CNII-XII intact Results - Labs CBC & Chem 7: 05/24/19 05:50 05/24/19 05:50 Labs: Laboratory Last Values WBC 6.3 K/mm3 (4.5-11.0) 05/24/19 05:50 RBC 4.20 M/mm3 (3.65-5.03) 05/24/19 05:50 Hgb 13.0 gm/dl (10.1-14.3) 05/24/19 05:50 Hct 39.0 % (30.3-42.9) 05/24/19 05:50 MCV 93 fl (79-97) 05/24/19 05:50 MCH 31 pg (28-32) 05/24/19 05:50 MCHC 33 % (30-34) 05/24/19 05:50 RDW 14.8 % (13.2-15.2) 05/24/19 05:50 Plt Count 158 K/mm3 (140-440) 05/24/19 05:50 Lymph % (Auto) 30.9 % (13.4-35.0) 05/24/19 05:50 [place] % (Auto) 7.8 % (0.0-7.3) H 05/24/19 05:50 Eos % (Auto) 1.6 % (0.0-4.3) 05/24/19 05:50 Baso % (Auto) 0.4 % (0.0-1.8) 05/24/19 05:50 Lymph # 1.9 K/mm3 (1.2-5.4) 05/24/19 05:50 [place] # 0.5 K/mm3 (0.0-0.8) 05/24/19 05:50 Eos # 0.1 K/mm3 (0.0-0.4) 05/24/19 05:50 Baso # 0.0 K/mm3 (0.0-0.1) 05/24/19 05:50 Seg Neutrophils % 59.3 % (40.0-70.0) 05/24/19 05:50 Seg Neutrophils # 3.7 K/mm3 (1.8-7.7) 05/24/19 05:50 Sodium 135 mmol/L (137-145) L 05/24/19 05:50 Potassium 4.5 mmol/L (3.6-5.0) D 05/24/19 05:50 Chloride 100.8 mmol/L (98-107) 05/24/19 05:50 Carbon Dioxide 20 mmol/L (22-30) L 05/24/19 05:50 19 mmol/L 05/24/19 05:50 BUN 4 mg/dL (7-17) L 05/24/19 05:50 0.4 mg/dL (0.7-1.2) L 05/24/19 05:50 Estimated GFR > 60 ml/min 05/24/19 05:50 10 % 05/24/19 05:50 Glucose 63 mg/dL (65-100) L 05/24/19 05:50 Calcium 8.1 mg/dL (8.4-10.2) L 05/24/19 05:50 Magnesium 1.10 mg/dL (1.7-2.3) L 05/23/19 18:35 0.60 mg/dL (0.1-1.2) 05/23/19 18:35 AST 37 units/L (5-40) 05/23/19 18:35 ALT 26 units/L (7-56) 05/23/19 18:35 81 units/L (35-129) 05/23/19 18:35 345 units/L (30-135) H 05/23/19 18:35 7.4 g/dL (6.3-8.2) 05/23/19 18:35 4.2 g/dL (3.9-5) 05/23/19 18:35 1.3 % 05/23/19 18:35 HCG, Qual Negative (Negative) 05/23/19 18:35 Plasma/Serum Alcohol < 0.01 % (0-0.07) 05/23/19 18:35 Active Medications - Current Medications Current Medications: Generic Name Dose Route Start Last Admin Trade Name Freq PRN Reason Stop Dose Admin Acetaminophen 650 mg 05/23/19 22:58 Tylenol PO Q4H PRN Pain MILD(1-3)/Fever >100.5/WOLF Folic Acid 1 mg 05/24/19 10:00 05/24/19 09:07 Folvite PO 1 mg QDAY ROSALINO Administration Hydralazine HCl 10 mg 05/24/19 03:21 05/24/19 04:52 Apresoline IV 10 mg Q4HR PRN Administration Blood Pressure Sodium Chloride 1,000 mls @ 75 mls/hr 05/23/19 23:00 Nacl 0.45% 1000 Ml IV DIRECT ROSALINO Lorazepam 2 mg 05/23/19 18:25 05/24/19 06:32 Ativan IV 2 mg Q1HR PRN Administration CIOK-Ar 8-15 Lorazepam 4 mg 05/23/19 18:25 05/23/19 21:06 Ativan IV 4 mg Q1HR PRN Administration CIWA-Ar 16-25 Lorazepam 4 mg 05/23/19 18:25 05/23/19 18:47 Ativan IV 4 mg Q15MIN PRN Administration CIWA-Ar >25 Ondansetron HCl 4 mg 05/23/19 22:58 Zofran IV Q8H PRN Nausea And Vomiting Sodium Chloride 10 ml 05/24/19 10:00 05/24/19 09:08 Sodium Chloride Flush Syringe 10 Ml IV 10 ml BID ROSALINO Administration Sodium Chloride 10 ml 05/23/19 22:58 Sodium Chloride Flush Syringe 10 Ml IV PRN PRN LINE FLUSH Thiamine HCl 100 mg 05/24/19 10:00 05/24/19 09:07 Vitamin B-1 PO 100 mg QDAY ROSALINO Administration
--- NOTE | 2019-05-24 12:00 | Consultation ---
History of Present Illness - Reason for Consult Consult date: 05/24/19 Reason for consult: Mental health Evaluation Requesting physician: NELY GUZMAN - Chief Complaint Chief complaint: 'My hand felt strange" - History of Present Psychiatric Illness 34 y.o. AA female who presented to the ER for alcohol withdrawals. Psychiatry was consulted to see the patient for etoh. Today the patient was calm and c ooperative during the assessment. She stated that she has a hx of alochol abuse since her "twenties " She stated stated that she drink more often when she is having difficulties in her life. She stated that she does not have a car and her children reside with her mother. She stated that she would like her life to be different. She stated that her last drink was 3 days ago. She stated that her issues shall past and it's up to her to make better decisions. She denies being depressed or depressed in the past. She stated, 'I don't remember taking any medication for depression." She stated that she is willing to try rehab services. She denies SI/HI's and AVH's. She denies erratic sleep and a poor appetite. She denies recreational drug use. Medications and Allergies Allergies Allergy/AdvReac Type Severity Reaction Status Date / Time No Known Allergies Allergy Unverified 01/03/15 05:56 Active Meds: Active Medications Acetaminophen (Tylenol) 650 mg PO Q4H PRN PRN Reason: Pain MILD(1-3)/Fever >100.5/WOLF Folic Acid (Folvite) 1 mg PO QDAY ROSALINO Last Admin: 05/24/19 09:07 Dose: 1 mg Documented by: Hydralazine HCl (Apresoline) 10 mg IV Q4HR PRN PRN Reason: Blood Pressure Last Admin: 05/24/19 04:52 Dose: 10 mg Documented by: Sodium Chloride (Nacl 0.45% 1000 Ml) 1,000 mls @ 75 mls/hr IV DIRECT ROSALINO Lorazepam (Ativan) 2 mg IV Q1HR PRN PRN Reason: Danielito 8-15 Last Admin: 05/24/19 06:32 Dose: 2 mg Documented by: Lorazepam (Ativan) 4 mg IV Q1HR PRN PRN Reason: Danielito 16- Last Admin: 05/23/19 21:06 Dose: 4 mg Documented by: Lorazepam (Ativan) 4 mg IV Q15MIN PRN PRN Reason: CIWA-Ar >25 Last Admin: 05/23/19 18:47 Dose: 4 mg Documented by: Ondansetron HCl (Zofran) 4 mg IV Q8H PRN PRN Reason: Nausea And Vomiting Sodium Chloride (Sodium Chloride Flush Syringe 10 Ml) 10 ml IV BID PENDING SALE TO [facility] Last Admin: 05/24/19 09:08 Dose: 10 ml Documented by: Sodium Chloride (Sodium Chloride Flush Syringe 10 Ml) 10 ml IV PRN PRN PRN Reason: LINE FLUSH Thiamine HCl (Vitamin B-1) 100 mg PO QDAY PENDING SALE TO [facility] Last Admin: 05/24/19 09:07 Dose: 100 mg Documented by: Past psychiatric history - Past Medical History Past Medical History: other (ETOH ) Past Surgical History: Other (Nose Surgery) - past Psychiatric treatment and history psychiatric treatment history: Hx of alcohol abuse. Denies a fam psy hx. - Social History Social history: lives with family Mental Status Exam - Vital signs Last Vital Signs Temp 98.7 F 05/24/19 07:25 Pulse 75 05/24/19 04:52 Resp 18 05/24/19 07:25 BP 147/93 05/24/19 07:25 Pulse Ox 100 05/24/19 03:59 - Exam Narrative exam: MSE: Appearance: calm, cooperative Behavior: regular eye contact Speech: regular rate and tone Mood: "okay" Affect: congruent to mood Thought Process: linear Thought Content: denies SI/HI's and AVH's Motor Activity: sitting up in bed Cognition: A/O x 3, mild tremors Insight: fair Judgment: fair Results Result Diagrams: 05/24/19 05:50 05/24/19 05:50 Abnormal lab results 05/23/19 05/23/19 05/24/19 Range/Units 18:35 18:35 05:50 [place] % (Auto) 7.8 H (0.0-7.3) % Lymph # 1.1 L (1.2-5.4) K/mm3 Seg Neutrophils % 79.7 H (40.0-70.0) % Sodium (137-145) mmol/L Potassium 2.7 L* (3.6-5.0) mmol/L Chloride 95.3 L (98-107) mmol/L Carbon Dioxide (22-30) mmol/L BUN 6 L (7-17) mg/dL Creatinine 0.5 L (0.7-1.2) mg/dL Glucose (65-100) mg/dL Calcium (8.4-10.2) mg/dL Magnesium 1.10 L (1.7-2.3) mg/dL Total Creatine Kinase 345 H (30-135) units/L 05/24/19 Range/Units 05:50 [place] % (Auto) (0.0-7.3) % Lymph # (1.2-5.4) K/mm3 Seg Neutrophils % (40.0-70.0) % Sodium 135 L (137-145) mmol/L Potassium (3.6-5.0) mmol/L Chloride (98-107) mmol/L Carbon Dioxide 20 L (22-30) mmol/L BUN 4 L (7-17) mg/dL Creatinine 0.4 L (0.7-1.2) mg/dL Glucose 63 L (65-100) mg/dL Calcium 8.1 L (8.4-10.2) mg/dL Magnesium (1.7-2.3) mg/dL Total Creatine Kinase (30-135) units/L All other labs normal. Assessment and Plan Assessment and plan: Impression: Alcohol Use DO. Today the patient was calm and cooperative during the assessment. Mild tremors noted (etoh). DDx: R/O Mood DO Recommendation/Plan: Continue CIWA. Discussed the importance to abstain from alcohol consumption (etoh), she verbalized understanding. Psy sign off. Dispo: The patient can follow up with [facility] for outpatient rehab services. Will staff with Dr. Charity Fowler.
== END 2019-05-24 17:00 | disposition left against medical advice (07) | DRG 640 ==
LOC: ED 17:40 → 4A 22:26 → 3A 05-24 13:12
PROVIDERS: ADMIT Internal Medicine; ATTEND Internal Medicine
DX: E87.6 Hypokalemia (principal); G93.41 Metabolic encephalopathy; E83.42 Hypomagnesemia; F10.10 Alcohol abuse, uncomplicated; Y90.9 Presence of alcohol in blood, level not specified; E87.2 Acidosis; E87.1 Hypo-osmolality and hyponatremia; Z53.21 Procedure and treatment not carried out due to patient leaving prior to being seen by health care provider; F17.210 Nicotine dependence, cigarettes, uncomplicated; Z71.6 Tobacco abuse counseling; Z82.49 Family history of ischemic heart disease and other diseases of the circulatory system; Z71.41 Alcohol abuse counseling and surveillance of alcoholic
CPT/HCPCS: 36415; 80048; 80053; 80320; 82550; 83735; 84100; 84703; 85025; 96365; 96375; 99406; G0378; G0480; J0360; J2060; J3411; J3475; J3480; J7030

== ENCOUNTER 2020-03-03 04:45 | Emergency (ER) | payer MEDICAID ==
[2020-03-03] MEDS ORDERED: SODIUM CHLORIDE 0.9% 1000 ML 1,000 ML IV ONE ×2 (04:58→04:59)
[2020-03-03] MEDS ORDERED: ONDANSETRON 4 MG/2 ML INJ IV ONE (04:58)
[2020-03-03] MEDS ORDERED: FAMOTIDINE 20 MG/2 ML INJ IV ONE (04:58)
[2020-03-03] MEDS ORDERED: LORazepam 2 MG/ML VIAL IV PRN ×3 (04:59)
[2020-03-03] MEDS ORDERED: LORazepam 2 MG/ML VIAL IV ONE (05:01)
[2020-03-03 05:33] LABS: Basophils % (Auto) 0.5 % (0.0-1.8); Eosinophils % (Auto) 0.1 % (0.0-4.3); Hematocrit 39.3 % (30.3-42.9); Hemoglobin 13.2 gm/dl (10.1-14.3); Lymphocytes # (Auto) 1.3 K/mm3 (1.2-5.4); Lymphocytes % (Auto) 29.1 % (13.4-35.0); Mean Corpuscular HGB Conc 34 % (30-34); Mean Corpuscular Volume 94 fl (79-97); Monocytes # (Auto) 0.6 K/mm3 (0.0-0.8); Monocytes % (Auto) 13.8 % (0.0-7.3); Red Blood Count 4.19 M/mm3 (3.65-5.03)
[2020-03-03 05:52] LABS: Platelet Count 141 K/mm3 (140-440); Red Cell Distribution Width 20.4 % (13.2-15.2)
--- NOTE | 2020-03-03 05:52 | Emergency Department Report ---
ED General Adult HPI - General Chief complaint: Dyspnea/Respdistress Stated complaint: RAPID BREATHING/SWEATS Time Seen by Provider: 03/03/20 04:58 Source: EMS Mode of arrival: Stretcher Limitations: No Limitations - History of Present Illness Initial comments: Patient is a 34-year-old F [place] female who is heavy drinker who is presenting with alcohol withdrawal. Patient states her last drink was yesterday at approximately 3 PM. Patient states that prior to arrival she woke up with vomiting as well as pressure in her chest and hand cramping. Patient feels as though her heart was racing and she was short of breath. States she believes she may have also had a seizure as her father states that she lost consciousness briefly and was convulsing. Patient does not remember this. Patient states she has had withdrawal seizures in the past. She would like to stop drinking at this time. Severity scale (0 -10): 9 - Related Data Allergies Allergy/AdvReac Type Severity Reaction Status Date / Time No Known Allergies Allergy Unverified 01/03/15 05:56 ED Review of Systems ROS: Stated complaint: RAPID BREATHING/SWEATS Other details as noted in HPI Comment: All other systems reviewed and negative ED Past Medical Hx - Past Medical History Previous Medical History?: Yes Hx Hypertension: Yes Hx Congestive Heart Failure: No Hx Diabetes: No Hx Psychiatric Treatment: Yes (ETOH abuse) Hx Asthma: No Hx COPD: No Hx HIV: No (pt requested HIV test) - Surgical History Past Surgical History?: Yes Additional Surgical History: CS/ NOSE SURGERY - Social History Smoking Status: Never Smoker Substance Use Type: Alcohol ED Physical Exam - General Limitations: No Limitations General appearance: alert, in no apparent distress - Head Head exam: Present: atraumatic, normocephalic - Eye Eye exam: Present: normal appearance, PERRL, EOMI - ENT ENT exam: Present: mucous membranes moist - Neck Neck exam: Present: normal inspection - Respiratory Respiratory exam: Present: normal lung sounds bilaterally. Absent: respiratory distress, wheezes, rales, rhonchi - Cardiovascular Cardiovascular Exam: Present: normal rhythm, tachycardia, normal heart sounds. Absent: systolic murmur, diastolic murmur, rubs, gallop - GI/Abdominal GI/Abdominal exam: Present: soft, normal bowel sounds. Absent: distended, tenderness, guarding, rebound - Extremities Exam Extremities exam: Present: normal inspection - Back Exam Back exam: Present: normal inspection - Neurological Exam Neurological exam: Present: alert, oriented X3 - Psychiatric Psychiatric exam: Present: normal affect, normal mood - Skin Skin exam: Present: warm, dry, intact, normal color. Absent: rash ED Course Vital Signs 03/03/20 03/03/20 04:53 04:55 Temperature 97.9 F Pulse Rate 107 H Respiratory 15 Rate Blood Pressure 161/98 [Left] O2 Sat by Pulse 100 Oximetry ED Medical Decision Making - Lab Data Result diagrams: 03/03/20 05:11 Critical care attestation.: If time is entered above; I have spent that time in minutes in the direct care of this critically ill patient, excluding procedure time. ED Disposition Condition: Stable Referrals: PRIMARY CARE, [Primary Care Provider] - 3-5 Days
[2020-03-03 05:53] LABS: BUN/Creatinine Ratio 10; Blood Urea Nitrogen 3 mg/dL (7-17); Calcium 8.5 mg/dL (8.4-10.2); Hemolysis Index 217
[2020-03-03 09:59] LABS: Amphetamine Screen,Urine PRESUMPTIVE NEGATIVE; Benzodiazepines Screen,Urine PRESUMPTIVE NEGATIVE; Cannabinoid Screen,Urine PRESUMPTIVE NEGATIVE; Cocaine Screen,Urine PRESUMPTIVE NEGATIVE; Methadone Screen,Urine PRESUMPTIVE NEGATIVE; Opiate Screen,Urine PRESUMPTIVE NEGATIVE
[2020-03-03 11:33] LABS: HCG Qualitative,Urine Negative (Negative)
[2020-03-03 11:40] LABS: Bacteria,Urine 1+ /HPF (Negative); Bilirubin,Urine NEG (Negative); Blood,Urine NEG (Negative); Color,Urine Straw (Yellow); Protein,Urine <15 mg/dL mg/dL (Negative)
[2020-03-03] MEDS ORDERED: amLODIPine 5 MG TAB PO ONE (13:12)
[2020-03-03 14:34] VITALS: BP 167/124
== END 2020-03-03 14:54 | disposition left against medical advice (07) ==
LOC: ED 04:45
DX: R06.89 Other abnormalities of breathing (principal); R61 Generalized hyperhidrosis; R06.02 Shortness of breath; R11.10 Vomiting, unspecified; I10 Essential (primary) hypertension; Z98.890 Other specified postprocedural states
CPT/HCPCS: 36415; 80048; 80307; 81001; 81025; 85025; 96361; 96374; 96375; 99284; J2060; J2405; J7030; 80320; G0480

== ENCOUNTER 2021-01-15 04:19 | Emergency (ER) | payer MEDICAID ==
[2021-01-15] MEDS ORDERED: levETIRAcetam 1000 MG/NS 0.75% 1,000 MG/100 ML BAG IV ONE (04:33)
--- NOTE | 2021-01-15 04:35 | Emergency Department Report ---
<SANDHYA LANDIS III Renny - Last Filed: 01/15/21 05:42> ED Seizure HPI - General Chief Complaint: Seizure Stated Complaint: SEIZURES Time Seen by Provider: 01/15/21 04:32 Source: patient, EMS Mode of arrival: Ambulatory Limitations: No Limitations - History of Present Illness Initial Comments: Patient is a 35-year-old female presents emergency room with a seizure. Patient is alert and oriented x4. Patient brought in by EMS. Report received from EMS. Patient seizure witnessed by her family. Patient denies head trauma. Patient states that he has a seizure history but is not on any seizure medication. Patient states she has had a seizure in many years. Patient states she does not require seizure medications. Patient states that she has not had alcohol for 2 weeks. Patient denies drug use. Patient denies any symptoms except for fatigue and malaise. Patient denies chest pain shortness of breath. Patient denies blurry vision. Patient denies confusion. Patient denies recent travel. Patient denies recent international travel. Patient denies exposure to the novel coronavirus. Patient denies sick contacts. Patient denies fever and chills. Patient denies cough. Patient denies diarrhea. Patient denies coming in contact with anybody with symptoms of the novel coronavirus. MD Complaint: seizure -: Sudden Description of Episode: loss of consciousness, tonic-clonic movement -: second(s) Witnessed:: Yes Trauma: No Seizure History: known seizure disorder, other (Patient is not on seizure medications.) Place: home Possible Precipitating Event: stress Associated Symptoms: malaise. denies: chest pain, confusion, cough, diaphoresis, loss of appetite, rash, shortness of breath, syncope, weakness, tongue injury, shoulder dislocation Treatments Prior to Arrival: none - Related Data Previous Rx's Medication Instructions Recorded Last Taken Type amLODIPine 5 mg PO DAILY #30 tab 03/03/20 Unknown Rx levETIRAcetam [Keppra] 500 mg PO BID #30 udc 01/15/21 Unknown Rx Allergies Allergy/AdvReac Type Severity Reaction Status Date / Time No Known Allergies Allergy Unverified 01/03/15 05:56 ED Review of Systems Constitutional: denies: chills, fever Eyes: denies: eye pain, eye discharge, vision change ENT: denies: ear pain, throat pain Respiratory: denies: cough, shortness of breath, wheezing Cardiovascular: denies: chest pain, palpitations Endocrine: no symptoms reported Gastrointestinal: denies: abdominal pain, nausea, diarrhea Genitourinary: denies: urgency, dysuria, discharge Musculoskeletal: denies: back pain, joint swelling, arthralgia Skin: denies: rash, lesions Neurological: as per HPI. denies: headache, weakness, paresthesias Psychiatric: denies: anxiety, depression Hematological/Lymphatic: denies: easy bleeding, easy bruising ED Past Medical Hx - Past Medical History Previous Medical History?: Yes Hx Hypertension: Yes Hx Congestive Heart Failure: No Hx Diabetes: No Hx Psychiatric Treatment: Yes (ETOH abuse) Hx Asthma: No Hx COPD: No Hx HIV: No (pt requested HIV test) - Surgical History Past Surgical History?: Yes Additional Surgical History: CS/ NOSE SURGERY - Family History Family history: no significant - Social History Smoking Status: Never Smoker Substance Use Type: Alcohol - Medications Home Medications: Home Medications Medication Instructions Recorded Confirmed Last Taken Type amLODIPine 5 mg PO DAILY #30 tab 03/03/20 Unknown Rx levETIRAcetam [Keppra] 500 mg PO BID #30 udc 01/15/21 Unknown Rx ED Physical Exam - General Limitations: No Limitations General appearance: alert, in no apparent distress - Head Head exam: Present: atraumatic, normocephalic - Eye Eye exam: Present: normal appearance, PERRL Pupils: Present: normal accommodation - ENT ENT exam: Present: mucous membranes moist - Neck Neck exam: Present: normal inspection - Respiratory Respiratory exam: Present: normal lung sounds bilaterally. Absent: respiratory distress - Cardiovascular Cardiovascular Exam: Present: regular rate, normal rhythm. Absent: systolic murmur, diastolic murmur, rubs, gallop - GI/Abdominal GI/Abdominal exam: Present: soft, normal bowel sounds - Extremities Exam Extremities exam: Present: normal inspection - Back Exam Back exam: Present: normal inspection - Neurological Exam Neurological exam: Present: alert, oriented X3, CN II-XII intact, normal gait. Absent: motor sensory deficit - Psychiatric Psychiatric exam: Present: normal affect, normal mood - Skin Skin exam: Present: warm, dry, intact, normal color. Absent: rash ED Course - Reevaluation(s) Reevaluation #1: Patient states she feels fine. No further seizure activity noted in the ER. I discussed all results and clinical findings with patient. I discussed plan of care with patient. Patient agrees with plan of care. Patient is stable for discharge. Patient will be discharged home. Patient given discharge instructions. Patient voiced understanding of discharge instructions. 01/15/21 06:05 ED Medical Decision Making - Radiology Data Radiology results: report reviewed CT head/brain wo con INDICATION: Seizure. TECHNIQUE: Routine CT head without contrast. All CT scans at this location are performed using CT dose reduction for ALARA by means of automated exposure control. COMPARISON: None. FINDINGS: BRAIN / INTRACRANIAL CONTENTS: No acute hemorrhage, mass effect, midline shift, or hydrocephalus. No appreciable acute large territorial or lacunar infarct. No chronic infarct or focal atrophy. Normal brain volume and ventricular/sulcal size for age. ORBITS: No significant abnormality of visualized orbits. SINUSES / MASTOIDS: No significant abnormality of visualized sinuses and mastoid air cells. ADDITIONAL FINDINGS: None. IMPRESSION: 1. No acute intracranial abnormality. - Medical Decision Making Patient is a 35-year-old female who presents emergency room for seizure activity. Patient brought in by EMS. Patient given Keppra IV after initial evaluation. Patient denies any seizure activity in the ER. Patient had labs patient had a head CT which was negative for acute findings. Patient stable for discharge. Patient given discharge directions. Patient prescribed Keppra. - Differential Diagnosis Seizure, seizure-like activity, epilepsy, electrolyte imbalance, stress ED Disposition Clinical Impression: Acute hypokalemia, Seizure Disposition: DC-01 TO HOME OR SELFCARE Is pt being admited?: No Does the pt Need Aspirin: No Condition: Stable Instructions: Seizure, Adult Additional Instructions: Patient to follow-up with primary care in 2 to 3 days. Patient to follow-up with neurologist in 2 to 3 days. Patient to rest. Patient to increase water. Patient to avoid strenuous exercise or heavy lifting until cleared by neurologist. Patient to take Tylenol or ibuprofen as needed for pain. Patient to take meds as directed. Patient to return to the ER if condition worsens, changes or new symptoms arise. Patient to avoid driving. Prescriptions: levETIRAcetam [Keppra] 500 mg PO BID #30 [facility] Referrals: SHUBHAM GLEZ MD [Primary Care Provider] - 2-3 Days FRANCISCA LUTHER MD [Staff Physician] - 2-3 Days Time of Disposition: 06:16 <JOSE LYNCH - Last Filed: 01/15/21 12:38> ED Review of Systems ROS: Stated complaint: SEIZURES Other details as noted in HPI ED Course Vital Signs 01/15/21 01/15/21 04:34 06:13 Temperature 99.5 F Pulse Rate 111 H 71 Respiratory 20 18 Rate Blood Pressure 125/84 Blood Pressure 134/93 [Right] O2 Sat by Pulse 98 98 Oximetry ED Medical Decision Making - Lab Data Result diagrams: 01/15/21 05:28 01/15/21 11:58 - Medical Decision Making Patient is 35 years old female with history of seizure. Patient signed out to me by my colleague Dr. ORNELAS, to follow-up on labs. Patient found to have a potassium of 3.6. Potassium replaced with potassium chloride 20 mEq IV and p atient also given 40mEq p.o. Repeat potassium is 3.2. No seizure activity observed in the ER. Patient advised to follow-up with her primary care physician in the next 2 to 3 days and to return to the ER if she develop any new symptoms. Critical Care Time: Yes Critical care time in (mins) excluding proc time.: 30 Critical care attestation.: If time is entered above; I have spent that time in minutes in the direct care of this critically ill patient, excluding procedure time.
--- NOTE | 2021-01-15 05:08 | Cat Scan Report ---
CT head/brain wo con INDICATION: Seizure. TECHNIQUE: Routine CT head without contrast. All CT scans at this location are performed using CT dos e reduction for ALARA by means of automated exposure control. COMPARISON: None. FINDINGS: BRAIN / INTRACRANIAL CONTENTS: No acute hemorrhage, mass effect, midline shift, or hydrocephalus. No appreciable acute large territorial or lacunar infarct. No chronic infarct or focal atrophy. Normal b rain volume and ventricular/sulcal size for age. ORBITS: No significant abnormality of visualized orbits. SINUSES / MASTOIDS: No significant abnormality of visualized sinuses and mastoid air cells. ADDITIONAL FINDINGS: None. IMPRESSION: 1. No acute intracranial abnormality. Signer Name: Frankie Cook MD Signed: 01/15/2021 5:03 AM Workstation Name: [id number]
[2021-01-15 05:57] LABS: Hematocrit 37.6 % (30.3-42.9); Hemoglobin 12.5 gm/dl (10.1-14.3); Mean Corpuscular HGB Conc 33 % (30-34); Mean Corpuscular Volume 86 fl (79-97); Red Blood Count 4.39 M/mm3 (3.65-5.03)
[2021-01-15 06:07] LABS: Alanine Aminotransferase 68 units/L (7-56); Albumin 4.1 g/dL (3.9-5); Blood Urea Nitrogen 4 mg/dL (7-17); Calcium 8.8 mg/dL (8.4-10.2); Hemolysis Index 21
[2021-01-15 06:12] LABS: BUN/Creatinine Ratio 8
[2021-01-15] MEDS ORDERED: POTASSIUM CHLORIDE ER 20 MEQ TAB PO ONE (06:21)
[2021-01-15] MEDS: POTASSIUM CHLORIDE 10 MEQ 10 MEQ/100 ML BAG IV SCH ×2 (06:39→08:34)
[2021-01-15 06:43] LABS: Bilirubin,Urine NEG (Negative); Blood,Urine NEG (Negative); Color,Urine Yellow (Yellow); Urobilinogen,Urine < 2.0 mg/dL (<2.0); WBC,Urine < 1.0 /HPF (0.0-6.0)
[2021-01-15 06:52] LABS: Amphetamine Screen,Urine Negative; Benzodiazepines Screen,Urine Negative; Cannabinoid Screen,Urine Negative; Cocaine Screen,Urine Negative; Methadone Screen,Urine Negative; Opiate Screen,Urine Negative
[2021-01-15 07:34] LABS: Total Cells Counted 100
[2021-01-15 07:35] LABS: Anisocytosis 2+; Giant Platelets 1+; Platelet Estimate Consistent w Auto; Stomatocytes Few
[2021-01-15 07:36] LABS: Platelet Count 45 K/mm3 (140-440)
[2021-01-15] MEDS ORDERED: SODIUM CHLORIDE 0.9% 500 ML 500 ML IV ONE (08:24)
[2021-01-15 12:47] VITALS: BP 129/91
== END 2021-01-15 12:49 | disposition home or self-care (01) ==
LOC: ED 04:19
DX: E87.6 Hypokalemia (principal); R56.9 Unspecified convulsions; I10 Essential (primary) hypertension; Z98.890 Other specified postprocedural states; Z79.899 Other long term (current) drug therapy
CPT/HCPCS: 36415; 70450; 80053; 80307; 81001; 84132; 84703; 85007; 85025; 96365; 96366; 96375; 99284; J1953; J3480; J7040

== ENCOUNTER 2021-08-23 14:39 | Inpatient (IN) | payer MEDICAID ==
[2021-08-23] MEDS ORDERED: THIAMINE 100 MG, FOLIC ACID 1 MG, MULTIPLE VITAMIN INJ, ADULT 10 ML in SODIUM CHLORIDE ... IV ONE (15:01)
[2021-08-23] MEDS ORDERED: levETIRAcetam 1000 MG/NS 0.75% 1,000 MG/100 ML BAG IV ONE (15:01)
[2021-08-23] MEDS ORDERED: diazePAM 10 MG/2 ML SYRINGE IV ONE (15:04)
--- NOTE | 2021-08-23 15:04 | Event Note ---
Date: 08/23/21 The patient was evaluated in the emergency department for symptoms described in the history of present illness. He/she was evaluated in the context of the global COVID-19 pandemic, which necessitated consideration that the patient might be at risk for infection with the virus that causes COVID-19. Institutional protocols and algorithms that pertain to the evaluation of patients at risk for COVID-19 are in a state of rapid change based on information released by regulatory bodies including the CDC and federal and state organizations. These policies and algorithms were followed during the patient's care in the emergency department. Please note that these policies, procedures and recommendations changed on a rapid basis. EMS documentation not available at time of chart dictation Medical screening examination: Patient is a 36-year-old female, with history of alcohol dependence, alcohol abuse, and alcohol withdrawal seizures, who presents to the ER today with a complaint of possible seizure. Patient reports consuming alcohol yesterday. She reports that she landed on the floor. She did not hit her head or neck that she is aware of. She complains of paralumbar back pain. She is not homicidal suicidal. She denies extremity weakness and numbness. She is mildly tremulous. This is likely alcohol withdrawal. Obtain appropriate laboratory studies, place patient on gambling monitor, obtain EKG, treat with fluids, Keppra, and Valium.
[2021-08-23 15:50] LABS: Basophils % (Auto) 0.4 % (0.0-1.8); Eosinophils % (Auto) 0.1 % (0.0-4.3); Hematocrit 39.7 % (30.3-42.9); Hemoglobin 13.5 gm/dl (10.1-14.3); Lymphocytes # (Auto) 0.9 K/mm3 (1.2-5.4); Lymphocytes % (Auto) 14.6 % (13.4-35.0); Mean Corpuscular HGB Conc 34 % (30-34); Mean Corpuscular Volume 88 fl (79-97); Monocytes # (Auto) 0.3 K/mm3 (0.0-0.8); Monocytes % (Auto) 4.1 % (0.0-7.3); Platelet Count 170 K/mm3 (140-440); Red Blood Count 4.53 M/mm3 (3.65-5.03)
[2021-08-23] MEDS: LORazepam 2 MG/ML VIAL IV PRN ×2 (16:01→21:59)
[2021-08-23 16:09] LABS: Red Cell Distribution Width 21.4 % (13.2-15.2)
[2021-08-23 17:17] LABS: Alanine Aminotransferase 52 units/L (7-56); Albumin 5.1 g/dL (3.9-5); Blood Urea Nitrogen 4 mg/dL (7-17); Calcium 9.5 mg/dL (8.4-10.2); Hemolysis Index 19
[2021-08-23 17:19] LABS: BUN/Creatinine Ratio 10
[2021-08-23] MEDS ORDERED: POTASSIUM CHLORIDE ER 20 MEQ TAB PO ONE (17:52)
--- NOTE | 2021-08-23 19:06 | Emergency Department Report ---
ED Seizure HPI - General Chief Complaint: Seizure Stated Complaint: SEIZURE Time Seen by Provider: 08/23/21 15:44 Source: patient, EMS Mode of arrival: Stretcher Limitations: No Limitations - History of Present Illness Initial Comments: Patient is a 36-year-old F [place] female who has a history of heavy alcohol abuse who is presenting with alcohol withdrawal seizure. Patient had at least one seizure earlier today. This was witnessed by family. Patient did lose complete consciousness. Patient states his last thing she remembers is driving here with the ambulance service. Patient states her last drink was early yesterday. States she is actively trying to stop drinking. States when she lives with her mother this is a deterrent to her alcohol abuse but the patient states she had a disagreement with her mother's boyfriend and left the house and started drinking heavily again. Patient drinks up to a gallon of vodka a day. - Related Data Previous Rx's Medication Instructions Recorded Last Taken Type amLODIPine 5 mg PO DAILY #30 tab 03/03/20 Unknown Rx levETIRAcetam [Keppra] 500 mg PO BID #30 udc 01/15/21 Unknown Rx Allergies Allergy/AdvReac Type Severity Reaction Status Date / Time No Known Allergies Allergy Unverified 01/03/15 05:56 ED Review of Systems ROS: Stated complaint: SEIZURE Other details as noted in HPI Comment: All other systems reviewed and negative ED Past Medical Hx - Past Medical History Hx Hypertension: Yes Hx CVA: No Hx Heart Attack/AMI: No Hx Congestive Heart Failure: No Hx Diabetes: No Hx Deep Vein Thrombosis: No Hx Pulmonary Embolism: No Hx GERD: No Hx Liver Disease: No Hx Renal Disease: No Hx Sickle Cell Disease: No Hx Arthritis: No Hx Headaches / Migraines: No Hx Seizures: Yes Hx Kidney Stones: No Hx Psychiatric Treatment: Yes (ETOH abuse) Hx Asthma: No Hx COPD: No Hx Tuberculosis: No Hx Dementia: No Hx HIV: No - Surgical History Hx Coronary Stent: No Hx Open Heart Surgery: No Hx Pacemaker: No Hx Internal Defibrillator: No Hx Cholecystectomy: No Hx Appendectomy: No Hx Breast Surgery: No Additional Surgical History: CS/ NOSE SURGERY - Social History Smoking Status: Current Every Day Smoker Substance Use Type: Alcohol - Medications Home Medications: Home Medications Medication Instructions Recorded Confirmed Last Taken Type amLODIPine 5 mg PO DAILY #30 tab 04/15/20 Unknown Rx levETIRAcetam [Keppra] 500 mg PO BID #30 [facility] [place] 01/15/21 Unknown Rx ED Physical Exam - General Limitations: No Limitations General appearance: alert, in no apparent distress - Head Head exam: Present: atraumatic, normocephalic - Eye Eye exam: Present: normal appearance - ENT ENT exam: Present: mucous membranes moist - Neck Neck exam: Present: normal inspection - Respiratory Respiratory exam: Present: normal lung sounds bilaterally. Absent: respiratory distress, wheezes, rales - Cardiovascular Cardiovascular Exam: Present: normal rhythm, tachycardia, normal heart sounds. Absent: systolic murmur, diastolic murmur, rubs, gallop - GI/Abdominal GI/Abdominal exam: Present: soft, normal bowel sounds. Absent: distended, tenderness, guarding, rebound - Extremities Exam Extremities exam: Present: normal inspection - Back Exam Back exam: Present: normal inspection - Neurological Exam Neurological exam: Present: alert, oriented X3 - Psychiatric Psychiatric exam: Present: normal affect, normal mood - Skin Skin exam: Present: warm, dry, intact, normal color. Absent: rash ED Course Vital Signs 08/23/21 08/23/21 08/23/21 15:03 15:06 15:15 Temperature 98.7 F Pulse Rate 86 80 Respiratory 19 20 Rate Blood Pressure 157/100 157/100 O2 Sat by Pulse 100 99 100 Oximetry 08/23/21 08/23/21 08/23/21 15:31 15:45 16:01 Temperature Pulse Rate 85 109 H 98 H Respiratory 15 15 21 Rate Blood Pressure 160/107 160/107 127/109 O2 Sat by Pulse 100 100 100 Oximetry 08/23/21 08/23/21 08/23/21 16:15 16:31 16:45 Temperature Pulse Rate 97 H 85 103 H Respiratory 19 22 26 H Rate Blood Pressure 160/107 160/107 166/112 O2 Sat by Pulse 100 100 99 Oximetry 08/23/21 08/23/21 08/23/21 17:01 17:15 17:31 Temperature Pulse Rate 97 H 95 H 99 H Respiratory 24 25 H 25 H Rate Blood Pressure 154/112 154/114 157/105 O2 Sat by Pulse 99 100 99 Oximetry ED Medical Decision Making - Lab Data Result diagrams: 08/23/21 15:22 08/23/21 15:22 Lab Results 1008/23/21 08/23/21 Range/Units 15:22 15:22 15:22 WBC 6.2 (4.5-11.0) K/mm3 RBC 4.53 (3.65-5.03) M/mm3 Hgb 13.5 (10.1-14.3) gm/dl Hct 39.7 (30.3-42.9) % MCV 88 (79-97) fl MCH 30 (28-32) pg MCHC 34 (30-34) % RDW 21.4 H (13.2-15.2) % Plt Count 170 (140-440) K/mm3 Lymph % (Auto) 14.6 (13.4-35.0) % Rosebud % (Auto) 4.1 (0.0-7.3) % Eos % (Auto) 0.1 (0.0-4.3) % Baso % (Auto) 0.4 (0.0-1.8) % Lymph # (Auto) 0.9 L (1.2-5.4) K/mm3 Rosebud # (Auto) 0.3 (0.0-0.8) K/mm3 Eos # (Auto) 0.0 (0.0-0.4) K/mm3 Baso # (Auto) 0.0 (0.0-0.1) K/mm3 Seg Neutrophils % 80.8 H (40.0-70.0) % Seg Neutrophils # 5.0 (1.8-7.7) K/mm3 Sodium (137-145) mmol/L Potassium (3.6-5.0) mmol/L Chloride (98-107) mmol/L Carbon Dioxide (22-30) mmol/L Anion Gap mmol/L BUN (7-17) mg/dL Creatinine (0.6-1.2) mg/dL Estimated GFR ml/min BUN/Creatinine Ratio % Glucose (65-100) mg/dL Calcium (8.4-10.2) mg/dL Magnesium 1.30 L (1.7-2.3) mg/dL Total Bilirubin (0.1-1.2) mg/dL AST (5-40) units/L ALT (7-56) units/L Alkaline Phosphatase (35-129) units/L Total Creatine Kinase 237 H (30-135) units/L Total Protein (6.3-8.2) g/dL Albumin (3.9-5) g/dL Albumin/Globulin Ratio % HCG, Quant < 2 (0-4) mIU/mL Salicylates (2.8-20.0) mg/dL Acetaminophen (10.0-30.0) ug/mL Plasma/Serum Alcohol (0-0.07) % 08/23/21 08/23/21 08/23/21 Range/Units 15:22 15:22 15:22 WBC (4.5-11.0) K/mm3 RBC (3.65-5.03) M/mm3 Hgb (10.1-14.3) gm/dl Hct (30.3-42.9) % MCV (79-97) fl MCH (28-32) pg MCHC (30-34) % RDW (13.2-15.2) % Plt Count (140-440) K/mm3 Lymph % (Auto) (13.4-35.0) % Rosebud % (Auto) (0.0-7.3) % Eos % (Auto) (0.0-4.3) % Baso % (Auto) (0.0-1.8) % Lymph # (Auto) (1.2-5.4) K/mm3 Rosebud # (Auto) (0.0-0.8) K/mm3 Eos # (Auto) (0.0-0.4) K/mm3 Baso # (Auto) (0.0-0.1) K/mm3 Seg Neutrophils % (40.0-70.0) % Seg Neutrophils # (1.8-7.7) K/mm3 Sodium (137-145) mmol/L Potassium (3.6-5.0) mmol/L Chloride (98-107) mmol/L Carbon Dioxide (22-30) mmol/L Anion Gap mmol/L BUN (7-17) mg/dL Creatinine (0.6-1.2) mg/dL Estimated GFR ml/min BUN/Creatinine Ratio % Glucose (65-100) mg/dL Calcium (8.4-10.2) mg/dL Magnesium (1.7-2.3) mg/dL Total Bilirubin (0.1-1.2) mg/dL AST (5-40) units/L ALT (7-56) units/L Alkaline Phosphatase (35-129) units/L Total Creatine Kinase (30-135) units/L Total Protein (6.3-8.2) g/dL Albumin (3.9-5) g/dL Albumin/Globulin Ratio % HCG, Quant (0-4) mIU/mL Salicylates < 0.3 L (2.8-20.0) mg/dL Acetaminophen 5.0 L (10.0-30.0) ug/mL Plasma/Serum Alcohol < 0.01 (0-0.07) % 08/23/21 Range/Units 15:22 WBC (4.5-11.0) K/mm3 RBC (3.65-5.03) M/mm3 Hgb (10.1-14.3) gm/dl Hct (30.3-42.9) % MCV (79-97) fl MCH (28-32) pg MCHC (30-34) % RDW (13.2-15.2) % Plt Count (140-440) K/mm3 Lymph % (Auto) (13.4-35.0) % Rosebud % (Auto) (0.0-7.3) % Eos % (Auto) (0.0-4.3) % Baso % (Auto) (0.0-1.8) % Lymph # (Auto) (1.2-5.4) K/mm3 Rosebud # (Auto) (0.0-0.8) K/mm3 Eos # (Auto) (0.0-0.4) K/mm3 Baso # (Auto) (0.0-0.1) K/mm3 Seg Neutrophils % (40.0-70.0) % Seg Neutrophils # (1.8-7.7) K/mm3 Sodium 141 (137-145) mmol/L Potassium 2.8 L* (3.6-5.0) mmol/L Chloride 91.7 L (98-107) mmol/L Carbon Dioxide 22 (22-30) mmol/L Anion Gap 30 mmol/L BUN 4 L (7-17) mg/dL Creatinine 0.4 L (0.6-1.2) mg/dL Estimated GFR > 60 ml/min BUN/Creatinine Ratio 10 % Glucose 51 L (65-100) mg/dL Calcium 9.5 (8.4-10.2) mg/dL Magnesium (1.7-2.3) mg/dL Total Bilirubin 1.10 (0.1-1.2) mg/dL AST 57 H (5-40) units/L ALT 52 (7-56) units/L Alkaline Phosphatase 129 (35-129) units/L Total Creatine Kinase (30-135) units/L Total Protein 8.9 H (6.3-8.2) g/dL Albumin 5.1 H (3.9-5) g/dL Albumin/Globulin Ratio 1.3 % HCG, Quant (0-4) mIU/mL Salicylates (2.8-20.0) mg/dL Acetaminophen (10.0-30.0) ug/mL Plasma/Serum Alcohol (0-0.07) % - Medical Decision Making Patient with a CIWA score of 24. Patient did require 4 mg IV Ativan. Patient was tachycardic agitated and diaphoretic. After medications given the patient is resting more comfortably but still tachycardic to 115. Patient to be admitted to the hospital service for further management. Critical Care Time: Yes (30) Critical care attestation.: If time is entered above; I have spent that time in minutes in the direct care of this critically ill patient, excluding procedure time. ED Disposition Clinical Impression: Alcohol abuse, Alcohol withdrawal, Seizure Disposition: ADMITTED INPATIENT Is pt being admited?: Yes Does the pt Need Aspirin: No Condition: Serious Time of Disposition: 19:06
[2021-08-23] MEDS ORDERED: DEXTROSE 50% IN WATER (25GM) 50 ML SYRINGE IV ONE (19:13)
--- NOTE | 2021-08-23 21:21 | History and Physical Report ---
History of Present Illness Date of examination: 08/23/21 Date of admission: 08/23/2021 Chief complaint: Altered sensorium History of present illness: 36-year-old -[place] female with severe alcohol dependence comes in for seizure this a.m. Patient apparently drinks over half a gallon of vodka for the last 10 years on a regular basis. In the emergency room patient is intermittently available confused and tremulous. Patient is actively trying to stop drinking. Patient apparently drove herself to the emergency room. Patient being admitted for alcohol withdrawal symptoms and DTs - Past Medical History --Hypertension: Yes --Seizures: Yes --Psychiatric Treatment: Yes (ETOH abuse) - Surgical History Hx Coronary Stent: N CS/ NOSE SURGERY - Social History Smoking Status: Current Every Day Smoker Substance Use Type: Alcohol - Medications Home Medications: Home Medications Medication Instructions Recorded Confirmed Last Taken Type amLODIPine 5 mg PO DAILY #30 tab 03/03/20 Unknown Rx levETIRAcetam [Keppra] 500 mg PO BID #30 udc 01/15/21 Unknown Rx Review of Systems ROS: Stated complaint: SEIZURE Other details as noted in HPI Comment: All other systems reviewed and negative Medications and Allergies Allergies Allergy/AdvReac Type Severity Reaction Status Date / Time No Known Allergies Allergy Unverified 01/03/15 05:56 Home Medications Medication Instructions Recorded Confirmed Last Taken Type amLODIPine 5 mg PO DAILY #30 tab 03/03/20 Unknown Rx levETIRAcetam [Keppra] 500 mg PO BID #30 udc 01/15/21 Unknown Rx Active Meds: Active Medications Lorazepam (Lorazepam 2 Mg/Ml Vial) 2 mg IV Q1HR PRN PRN Reason: CIWA-Ar 8-15 Lorazepam (Lorazepam 2 Mg/Ml Vial) 4 mg IV Q1HR PRN PRN Reason: CIWA-Ar 16-25 Last Admin: 08/23/21 16:01 Dose: 4 mg Documented by: Exam - Constitutional Vitals: Temp Pulse Resp BP Pulse Ox 98.6 F 92 H 22 138/108 100 08/23/21 19:35 08/23/21 19:35 08/23/21 19:35 08/23/21 19:35 08/23/21 19:57 General appearance: Present: mild distress, well-nourished - EENT Eyes: Present: PERRL ENT: hearing intact, clear oral mucosa - Neck Neck: Present: supple, normal ROM - Respiratory Respiratory effort: normal Respiratory: bilateral: CTA - Cardiovascular Heart rate: 98 Rhythm: regular Heart Sounds: Present: S1 & S2. Absent: rub, click - Extremities Extremities: no ischemia, pulses intact, pulses symmetrical, No edema Peripheral Pulses: within normal limits - Abdominal General gastrointestinal: Present: soft, non-tender, non-distended, normal bowel sounds Female genitourinary: Present: normal - Integumentary Integumentary: Present: clear, warm, dry - Musculoskeletal Musculoskeletal: gait normal, strength equal bilaterally - Psychiatric Psychiatric: agitated, other (Tremulous, altered sensorium) - Neurologic Neurologic: CNII-XII intact, moves all extremities, other (Patient appears depressed and with altered sensorium) Results - Labs CBC & Chem 7: 08/23/21 15:22 08/24/21 05:42 Labs: Laboratory Last Values WBC 6.2 K/mm3 (4.5-11.0) 08/23/21 15: RBC 4.53 M/mm3 (3.65-5.03) 08/23/21 15:22 Hgb 13.5 gm/dl (10.1-14.3) 08/23/21 15: Hct 39.7 % (30.3-42.9) 08/23/21 15: MCV 88 fl (79-97) 08/23/21 15:22 MCH 30 pg (28-32) 08/23/21 15: MCHC 34 % (30-34) 08/23/21 15: RDW 21.4 % (13.2-15.2) H 08/23/21 15: Plt Count 170 K/mm3 (140-440) 08/23/21 15: Lymph % (Auto) 14.6 % (13.4-35.0) 08/23/21 15: [place] % (Auto) 4.1 % (0.0-7.3) 08/23/21 15: Eos % (Auto) 0.1 % (0.0-4.3) 08/23/21 15: Baso % (Auto) 0.4 % (0.0-1.8) 08/23/21 15: Lymph # (Auto) 0.9 K/mm3 (1.2-5.4) L 08/23/21 15:22 [place] # (Auto) 0.3 K/mm3 (0.0-0.8) 08/23/21 15:22 Eos # (Auto) 0.0 K/mm3 (0.0-0.4) 08/23/21 15:22 Baso # (Auto) 0.0 K/mm3 (0.0-0.1) 08/23/21 15:22 Seg Neutrophils % 80.8 % (40.0-70.0) H 08/23/21 15:22 Seg Neutrophils # 5.0 K/mm3 (1.8-7.7) 08/23/21 15:22 Sodium 141 mmol/L (137-145) 08/23/21 15:22 Potassium 2.8 mmol/L (3.6-5.0) L* 08/23/21 15:22 Chloride 91.7 mmol/L (98-107) L 08/23/21 15:22 Carbon Dioxide 22 mmol/L (22-30) 08/23/21 15:22 Anion Gap 30 mmol/L 08/23/21 15:22 BUN 4 mg/dL (7-17) L 08/23/21 15:22 Creatinine 0.4 mg/dL (0.6-1.2) L 08/23/21 15:22 Estimated GFR > 60 ml/min 08/23/21 15:22 BUN/Creatinine Ratio 10 % 08/23/21 15:22 Glucose 51 mg/dL (65-100) L 08/23/21 15:22 POC Glucose 136 mg/dL (70-105) H 08/23/21 19:54 Calcium 9.5 mg/dL (8.4-10.2) 08/23/21 15:22 Magnesium 1.30 mg/dL (1.7-2.3) L 08/23/21 15:22 Total Bilirubin 1.10 mg/dL (0.1-1.2) 08/23/21 15:22 AST 57 units/L (5-40) H 08/23/21 15:22 ALT 52 units/L (7-56) 08/23/21 15:22 Alkaline Phosphatase 129 units/L (35-129) 08/23/21 15:22 Total Creatine Kinase 237 units/L (30-135) H 08/23/21 15:22 Total Protein 8.9 g/dL (6.3-8.2) H 08/23/21 15:22 Albumin 5.1 g/dL (3.9-5) H 08/23/21 15:22 Albumin/Globulin Ratio 1.3 % 08/23/21 15:22 HCG, Quant < 2 mIU/mL (0-4) 08/23/21 15:22 Salicylates < 0.3 mg/dL (2.8-20.0) L 08/23/21 15:22 Acetaminophen 5.0 ug/mL (10.0-30.0) L 08/23/21 15:22 Plasma/Serum Alcohol < 0.01 % (0-0.07) 08/23/21 15:22 Short CBC 08/23/21 Range/Units 15:22 WBC 6.2 (4.5-11.0) K/mm3 Hgb 13.5 (10.1-14.3) gm/dl Hct 39.7 (30.3-42.9) % Plt Count 170 (140-440) K/mm3 BMP 08/23/21 08/24/21 15:22 05:42 Sodium 141 130 L D Potassium 2.8 L* 5.3 H D Chloride 91.7 L 97.0 L Carbon Dioxide 22 18 L BUN 4 L 3 L Creatinine 0.4 L 0.2 L Glucose 51 L 77 Calcium 9.5 9.0 Cardiac Enzymes 08/23/21 Range/Units 15:22 Total Creatine Kinase 237 H (30-135) units/L Liver Function 08/23/21 08/24/21 Range/Units 15:22 05:42 Total Bilirubin 1.10 1.40 H (0.1-1.2) mg/dL AST 57 H 53 H (5-40) units/L ALT 52 41 (7-56) units/L Alkaline Phosphatase 129 114 (35-129) units/L Albumin 5.1 H 4.2 (3.9-5) g/dL Assessment and Plan Advance Directives: Yes (Full code) VTE prophylaxis?: Chemical Plan of care discussed with patient/family: Yes - Patient Problems (1) Alcohol withdrawal delirium Current Visit: Yes Status: Acute Plan to address problem: Patient initiated on IV fluids and CIWA protocol Neurology consult for further suggestions (2) Alcohol abuse Current Visit: Yes Status: Chronic Plan to address problem: Patient wants to go to detox center We will transfer to detox center once patient is stable Case management to work on detox placement (3) Hypokalemia Current Visit: No Status: Acute Plan to address problem: Supplemented Recheck potassium level (4) Hypomagnesemia Current Visit: No Status: Acute Plan to address problem: Supplemented Recheck magnesium level (5) Transaminasemia Current Visit: No Status: Acute Plan to address problem: Rhinitis Patient counseled regarding stopping alcohol so that he does not have long-term effects on liver (6) Depression Onset Date: 01/04/15 Current Visit: No Status: Chronic Plan to address problem: Patient started on Zoloft (7) Seizure disorder Current Visit: Yes Status: Chronic Plan to address problem: Continue IV Keppra and change to oral Keppra once patient is stable (8) DVT prophylaxis Current Visit: Yes Status: Acute Plan to address problem: On anticoagulation and GI
[2021-08-23] MEDS ORDERED: METOCLOPRAMIDE 10 MG/2 ML INJ IV PRN (21:23)
[2021-08-23] MEDS ORDERED: HYDROmorphone 1 MG/1 ML INJ IV PRN (21:23)
[2021-08-23] MEDS ORDERED: ONDANSETRON 4 MG/2 ML INJ IV PRN (21:23)
[2021-08-23] MEDS ORDERED: ACETAMINOPHEN 325 MG TAB PO PRN (21:23)
[2021-08-23] MEDS ORDERED: MORPHINE 2 MG/1 ML INJ IV PRN (21:23)
[2021-08-23] MEDS ORDERED: MAGNESIUM SULFATE 2 GM/50 ML BAG IV ONE (21:30)
[2021-08-23] MEDS ORDERED: levETIRAcetam 500 MG/5 ML ORAL LIQD PO SCH (22:00)
[2021-08-23] MEDS ORDERED: D5W/0.9% NACL 1,000 ML IV SCH (22:00)
[2021-08-23] MEDS: POTASSIUM CHLORIDE ER 20 MEQ TAB PO SCH (22:51)
[2021-08-23] MEDS: amLODIPine 10 MG TAB PO SCH (22:52)
[2021-08-23] MEDS: HEPARIN 5,000 UNIT/1 ML VIAL SUB-Q SCH (22:54)
[2021-08-24] MEDS: levETIRAcetam 750 MG in DEXTROSE 5% IN WATER 100 ML IV SCH ×2 (00:01→09:42)
[2021-08-24] MEDS: POTASSIUM CHLORIDE 10 MEQ 10 MEQ/100 ML BAG IV SCH ×5 (00:27→04:09)
[2021-08-24] MEDS: POTASSIUM CHLORIDE ER 20 MEQ TAB PO SCH ×2 (02:40→06:15)
[2021-08-24] MEDS: LORazepam 2 MG/ML VIAL IV PRN ×2 (03:03→09:42)
[2021-08-24 06:47] LABS: Alanine Aminotransferase 41 units/L (7-56); Albumin 4.2 g/dL (3.9-5); Blood Urea Nitrogen 3 mg/dL (7-17); Hemolysis Index 115
[2021-08-24 06:48] LABS: BUN/Creatinine Ratio 15
[2021-08-24] MEDS: amLODIPine 10 MG TAB PO SCH (09:42)
[2021-08-24] MEDS: HEPARIN 5,000 UNIT/1 ML VIAL SUB-Q SCH (09:42)
[2021-08-24 14:28] VITALS: BP 109/76
--- NOTE | 2021-08-25 15:24 | Discharge Summary ---
Providers - Providers Date of Admission: 08/23/21 21:23 Date of discharge: 08/24/21 Attending physician: EZIO KNIGHT Primary care physician: COMMISSION ASSOCIATE Hospitalization Condition: Serious Disposition: 07 LEFT AGAINST MEDICAL ADVICE Exam - Constitutional Vitals: Temp Pulse Resp BP Pulse Ox 98.8 F 172 H 18 109/76 99 08/24/21 04:31 08/24/21 15:01 08/24/21 15:01 08/24/21 15:01 08/24/21 14:31 Plan Forms: AMA Form
--- NOTE | 2021-08-25 15:25 | Discharge Summary ---
Providers - Providers Date of Admission: 08/23/21 21:23 Date of discharge: 08/25/21 Attending physician: EZIO KNIGHT Primary care physician: ASSISTANCE COORDINATOR Hospitalization Condition: Serious Disposition: 01 HOME / SELF CARE / HOMELESS Final Discharge Diagnosis (Prints w/discharge instructions): -- alcohol withdrawal. -- hyponatremia Time spent for discharge: 34 minutes Core Measure Documentation - Palliative Care Palliative Care/ Comfort Measures: Not Applicable - Core Measures Any of the following diagnoses?: none Exam - Constitutional Vitals: Temp Pulse Resp BP Pulse Ox 98.8 F 172 H 18 109/76 99 08/24/21 04:31 08/24/21 15:01 08/24/21 15:01 08/24/21 15:01 08/24/21 14:31 Plan Activity: advance as tolerated Weight Bearing Status: Weight Bear as Tolerated Diet: low fat, low salt Follow up with: PRIMARY CARE, [Primary Care Provider] - 7 Days Forms: AMA Form
== END 2021-08-24 18:08 | disposition left against medical advice (07) | DRG 101 ==
LOC: ED 14:39 → 4A 21:23
PROVIDERS: ADMIT Internal Medicine; ATTEND Internal Medicine
DX: G40.909 Epilepsy, unspecified, not intractable, without status epilepticus (principal); F10.131 Alcohol abuse with withdrawal delirium; Z53.29 Procedure and treatment not carried out because of patient's decision for other reasons; F17.200 Nicotine dependence, unspecified, uncomplicated; I10 Essential (primary) hypertension; E87.6 Hypokalemia; E83.42 Hypomagnesemia; J31.0 Chronic rhinitis; F32.9 Major depressive disorder, single episode, unspecified; E87.1 Hypo-osmolality and hyponatremia
CPT/HCPCS: 36415; 80053; 80320; 82140; 82150; 82550; 82962; 83735; 84100; 84702; 85025; G0378; G0480; J1644; J1953; J2060; J2405; J3360; J3411; J3475; J3480; J7030

== ENCOUNTER 2021-08-25 02:17 | Inpatient (IN) | payer MEDICAID ==
[2021-08-25] MEDS ORDERED: SODIUM CHLORIDE 0.9% 1000 ML 1,000 ML IV ONE (03:56)
[2021-08-25] MEDS ORDERED: LORazepam 2 MG/ML VIAL IV PRN ×2 (03:57)
[2021-08-25] MEDS ORDERED: ONDANSETRON 4 MG/2 ML INJ IV ONE (03:59)
--- NOTE | 2021-08-25 04:00 | Emergency Department Report ---
ED Alcohol HPI - General Chief Complaint: Alcohol Stated Complaint: VOMITING Time Seen by Provider: 08/25/21 03:47 Source: patient Mode of arrival: Ambulatory Limitations: No Limitations - History of Present Illness Initial Comments: Patient is a 36-year-old female that presents emergency room with complaints of seizure, nausea, vomiting. Patient states that she is also feeling tremulous. Patient states she was here earlier today and signed out AGAINST MEDICAL ADVICE because she has some personal issues to take care of with her kids. Patient states she was admitted for a withdrawal seizure. Patient states that she has had nonstop nausea and vomiting since leaving the hospital. Patient states she is unable to hold any food or water down. Patient states she left the hospital at 6 PM. Patient states she came back around 11 PM because her symptoms are worsening. Patient states she is having epigastric pain. Patient denies recent travel. Patient denies recent international travel. Patient denies exposure to the novel coronavirus. Patient denies sick contacts. Patient denies fever and chills. Patient denies cough. Patient denies diarrhea. Patient denies coming in contact with anybody with symptoms of the novel coronavirus. MD Complaint: alcohol withdrawal Last Drink: unknown Chronic Alcohol Use: Yes Previous Visits for Alcohol Intoxication?: Yes Recent Trauma: No Associated Symptoms: nausea, vomiting, seizure, tremors. denies: syncope Treatments Prior to Arrival: none - Related Data Previous Rx's Medication Instructions Recorded Last Taken Type amLODIPine 5 mg PO DAILY #30 tab 03/03/20 08/23/21 22:52 Rx Allergies Allergy/AdvReac Type Severity Reaction Status Date / Time No Known Allergies Allergy Verified 08/24/21 17:11 ED Review of Systems ROS: Stated complaint: VOMITING Other details as noted in HPI Constitutional: denies: chills, fever Eyes: denies: eye pain, eye discharge, vision change ENT: denies: ear pain, throat pain Respiratory: denies: cough, shortness of breath, wheezing Cardiovascular: denies: chest pain, palpitations Endocrine: no symptoms reported Gastrointestinal: as per HPI, abdominal pain, nausea, vomiting. denies: diarrhea Genitourinary: denies: urgency, dysuria, discharge Musculoskeletal: denies: back pain, joint swelling, arthralgia Skin: denies: rash, lesions Neurological: as per HPI. denies: headache, weakness, paresthesias Psychiatric: denies: anxiety, depression Hematological/Lymphatic: denies: easy bleeding, easy bruising ED Past Medical Hx - Past Medical History Previous Medical History?: Yes Hx Hypertension: Yes Hx CVA: No Hx Heart Attack/AMI: No Hx Congestive Heart Failure: No Hx Diabetes: No Hx Deep Vein Thrombosis: No Hx Pulmonary Embolism: No Hx GERD: No Hx Liver Disease: No Hx Renal Disease: No Hx Sickle Cell Disease: No Hx Arthritis: No Hx Headaches / Migraines: No Hx Seizures: Yes Hx Kidney Stones: No Hx Psychiatric Treatment: Yes (ETOH abuse) Hx Asthma: No Hx COPD: No Hx Tuberculosis: No Hx Dementia: No Hx HIV: No - Surgical History Past Surgical History?: Yes Hx Coronary Stent: No Hx Open Heart Surgery: No Hx Pacemaker: No Hx Internal Defibrillator: No Hx Cholecystectomy: No Hx Appendectomy: No Hx Breast Surgery: No Additional Surgical History: CS/ NOSE SURGERY - Social History Smoking Status: Current Every Day Smoker Substance Use Type: Alcohol - Medications Home Medications: Home Medications Medication Instructions Recorded Confirmed Last Taken Type amLODIPine 5 mg PO DAILY #30 tab 03/03/20 08/24/21 08/23/21 22:52 Rx ED Physical Exam - General Limitations: No Limitations General appearance: alert, in no apparent distress - Head Head exam: Present: atraumatic, normocephalic - Eye Eye exam: Present: normal appearance - ENT ENT exam: Present: mucous membranes moist - Neck Neck exam: Present: normal inspection - Respiratory Respiratory exam: Present: normal lung sounds bilaterally. Absent: respiratory distress - Cardiovascular Cardiovascular Exam: Present: regular rate, normal rhythm. Absent: systolic murmur, diastolic murmur, rubs, gallop - GI/Abdominal GI/Abdominal exam: Present: soft, tenderness (Epigastric tenderness to palpation.), normal bowel sounds - Extremities Exam Extremities exam: Present: normal inspection - Back Exam Back exam: Present: normal inspection - Neurological Exam Neurological exam: Present: alert, oriented X3 - Psychiatric Psychiatric exam: Present: normal affect, normal mood - Skin Skin exam: Present: warm, dry, intact, normal color. Absent: rash ED Course Vital Signs 08/25/21 08/25/21 02:37 03:15 Temperature 98.0 F Pulse Rate 91 H 140 H Respiratory 16 18 Rate Blood Pressure 123/81 139/98 O2 Sat by Pulse 95 100 Oximetry - Reevaluation(s) Reevaluation #1: I discussed all results with patient. I discussed plan of care with patient. Patient agrees with plan of care and admission. Patient to be admitted to the hospitalist service. 08/25/21 05:30 Reevaluation #2: Patient's IV came out. Nurse unable to start another IV. Patient will have any EJ placed. See procedure note. 08/25/21 05:42 - Consultations Consultation #1: Hospitalist consulted for admission. Hospitalist to admit patient. 08/25/21 05:33 - EJ/Peripheral Line Neck L Time Out Performed: Yes Indications: nurses unable to establis Skin Cleansed in Sterile Fashion: Yes Size: 20 Dressing Placed: Tegaderm, tape Patient Tolerated Procedure: well, no complications ED Medical Decision Making - Lab Data Result diagrams: 08/25/21 04:25 08/25/21 04:25 - Medical Decision Making Patient is a 36-year-old female who presents emergency room with complaints of seizure, nausea, vomiting, intractable nausea vomiting, tremors. Patient also complained of epigastric pain. Patient was recently admitted to the hospital patient signed out AMA. Patient left the hospital around 6 PM and her symptoms worsen she return at 11 PM for reevaluation. Patient had labs done which showed abnormal chemistry. Patient given Zofran, Ativan and fluids in the ER. Patient be admitted to the hospital service for further evaluation treatment. Critical care time documented due to the multiple reassessments, prolonged time at the bedside, interpretation of diagnostics and labs. Patient had a left EJ placed. See procedure note. Patient tolerated procedure well. - Differential Diagnosis Alcohol withdrawal, intractable nausea vomiting, alcohol withdrawal seizure Critical Care Time: Yes Critical care time in (mins) excluding proc time.: 35 Critical care attestation.: If time is entered above; I have spent that time in minutes in the direct care of this critically ill patient, excluding procedure time. Critical Care Time: 35 minutes ED Disposition Clinical Impression: Intractable nausea and vomiting, Epigastric abdominal pain Alcohol withdrawal Qualifiers: Complication of substance-induced condition: with unspecified complication Qualified Code(s): F10.239 - Alcohol dependence with withdrawal, unspecified Disposition: 09 ADMITTED INPATIENT Is pt being admited?: Yes Does the pt Need Aspirin: No Condition: Critical Time of Disposition: 05:35
[2021-08-25 04:35] LABS: Hematocrit 39.6 % (30.3-42.9); Hemoglobin 13.1 gm/dl (10.1-14.3); Mean Corpuscular HGB Conc 33 % (30-34); Mean Corpuscular Volume 89 fl (79-97); Red Blood Count 4.45 M/mm3 (3.65-5.03)
[2021-08-25 04:52] LABS: Platelet Count 156 K/mm3 (140-440); Red Cell Distribution Width 21.9 % (13.2-15.2)
[2021-08-25 05:02] LABS: Alanine Aminotransferase 33 units/L (7-56); Albumin 3.7 g/dL (3.9-5); Blood Urea Nitrogen 10 mg/dL (7-17); Calcium 9.1 mg/dL (8.4-10.2); Hemolysis Index 64
[2021-08-25 05:03] LABS: BUN/Creatinine Ratio 25
[2021-08-25] MEDS: LORazepam 2 MG/ML VIAL IV PRN ×2 (06:00→13:58)
[2021-08-25] MEDS ORDERED: ONDANSETRON 4 MG/2 ML INJ IV PRN (06:05)
[2021-08-25] MEDS ORDERED: ALBUTEROL 2.5 MG/3 ML NEBU IH PRN (06:05)
[2021-08-25] MEDS ORDERED: ACETAMINOPHEN 325 MG TAB PO PRN (06:05)
[2021-08-25] MEDS ORDERED: HYDROmorphone 1 MG/1 ML INJ IV PRN (06:05)
[2021-08-25] MEDS ORDERED: oxyCODONE /ACETAMINOPHEN 5-325MG TAB PO PRN (06:05)
--- NOTE | 2021-08-25 06:12 | History and Physical Report ---
History of Present Illness Date of examination: 08/25/21 Date of admission: 08/25/21 Chief complaint: Alcohol withdrawal syndrome History of present illness: 36-year-old female with history of alcohol abuse drinks about a gallon of alcohol daily was brought to the emergency room because of seizure, nausea, vomiting. Patient also feeling tremulous. Patient states she was here earlier today and signed out AGAINST MEDICAL ADVICE because she has some personal issues to take care of with her kids. Patient states she was admitted for a withdrawal seizure. Patient states that she has had nonstop nausea and vomiting since leaving the hospital. Patient states she is unable to hold any food or water down. Patient states she left the hospital at 6 PM. Patient states she came back around 11 PM because her symptoms are worsening. Patient states she is having epigastric pain. In the emergency room patient is found to have alcohol withdrawal. Patient blood alcohol is 0.01 Med rec is done. Advance discharge process is initiated Past History Past Medical History: hypertension, seizures Medications and Allergies Allergies Allergy/AdvReac Type Severity Reaction Status Date / Time No Known Allergies Allergy Verified 08/24/21 17:11 Home Medications Medication Instructions Recorded Confirmed Last Taken Type amLODIPine 5 mg PO DAILY #30 tab 03/03/20 08/24/21 08/23/21 22:52 Rx Active Meds: Active Medications Acetaminophen (Acetaminophen 325 Mg Tab) 650 mg PO Q4H PRN PRN Reason: Pain MILD(1-3)/Fever >100.5/WOLF Albuterol (Albuterol 2.5 Mg/3 Ml Nebu) 2.5 mg IH Q4HRT PRN PRN Reason: Shortness Of Breath Albuterol/Ipratropium (Ipratropium/Albuterol Sulfate 3 Ml Ampul.Neb) 1 ampul IH Q6HRT ROSALINO Amlodipine Besylate (Amlodipine 5 Mg Tab) 5 mg PO DAILY ROSALINO Famotidine (Famotidine 20 Mg/2 Ml Inj) 20 mg IV BID ROSALINO Heparin Sodium (Porcine) (Heparin 5,000 Unit/1 Ml Vial) 5,000 unit SUB-Q Q8HR ROSALINO Hydromorphone HCl (Hydromorphone 1 Mg/1 Ml Inj) 0.5 mg IV Q3H PRN PRN Reason: Pain , Severe (7-10) Dextrose/Sodium Chloride (D5/0.45ns) 1,000 mls @ 100 mls/hr IV DIRECT ROSALINO Lorazepam (Lorazepam 2 Mg/Ml Vial) 2 mg IV Q1HR PRN PRN Reason: CIWA-Ar 8-15 Last Admin: 08/25/21 06:00 Dose: 2 mg Documented by: Lorazepam (Lorazepam 2 Mg/Ml Vial) 4 mg IV Q1HR PRN PRN Reason: CIWA-Ar 16-25 Lorazepam (Lorazepam 2 Mg/Ml Vial) 4 mg IV Q15MIN PRN PRN Reason: CIWA-Ar >25 Ondansetron HCl (Ondansetron 4 Mg/2 Ml Inj) 4 mg IV Q8H PRN PRN Reason: Nausea And Vomiting Oxycodone/Acetaminophen (Oxycodone /Acetaminophen 5-325mg Tab) 1 tab PO Q6H PRN PRN Reason: Pain, Moderate (4-6) Sodium Chloride (Sodium Chloride 0.9% 10 Ml Flush Syringe) 10 ml IV BID ROSALINO Sodium Chloride (Sodium Chloride 0.9% 10 Ml Flush Syringe) 10 ml IV PRN PRN PRN Reason: LINE FLUSH Review of Systems All systems: negative Gastrointestinal: nausea, vomiting Neurological: seizures Exam - Constitutional Vitals: Temp Pulse Resp BP Pulse Ox 98.0 F 96 H 22 115/87 94 08/25/21 02:37 08/25/21 06:01 08/25/21 06:01 08/25/21 06:01 08/25/21 06:01 General appearance: Present: no acute distress, well-nourished - EENT Eyes: Present: PERRL ENT: hearing intact, clear oral mucosa - Neck Neck: Present: supple, normal ROM - Respiratory Respiratory effort: normal Respiratory: bilateral: CTA - Cardiovascular Heart Sounds: Present: S1 & S2. Absent: rub, click - Extremities Extremities: pulses symmetrical, No edema Peripheral Pulses: within normal limits - Abdominal General gastrointestinal: Present: soft, non-tender, tender, normal bowel sounds Female genitourinary: Present: normal - Integumentary Integumentary: Present: clear, warm, dry - Musculoskeletal Musculoskeletal: gait normal, strength equal bilaterally - Psychiatric Psychiatric: appropriate mood/affect, intact judgment & insight - Neurologic Neurologic: CNII-XII intact, moves all extremities Results - Labs CBC & Chem 7: 08/25/21 04:25 08/25/21 04:25 Labs: Laboratory Last Values WBC 11.9 K/mm3 (4.5-11.0) H 08/25/21 04:25 RBC 4.45 M/mm3 (3.65-5.03) 08/25/21 04:25 Hgb 13.1 gm/dl (10.1-14.3) 08/25/21 04:25 Hct 39.6 % (30.3-42.9) 08/25/21 04:25 MCV 89 fl (79-97) 08/25/21 04:25 MCH 30 pg (28-32) 08/25/21 04:25 MCHC 33 % (30-34) 08/25/21 04:25 RDW 21.9 % (13.2-15.2) H 08/25/21 04:25 Plt Count 156 K/mm3 (140-440) 08/25/21 04:25 Sodium 127 mmol/L (137-145) L 08/25/21 04:25 Potassium 4.1 mmol/L (3.6-5.0) D 08/25/21 04:25 Chloride 94.1 mmol/L (98-107) L 08/25/21 04:25 Carbon Dioxide 18 mmol/L (22-30) L 08/25/21 04:25 Anion Gap 19 mmol/L 08/25/21 04:25 BUN 10 mg/dL (7-17) 08/25/21 04:25 Creatinine 0.4 mg/dL (0.6-1.2) L D 08/25/21 04:25 Estimated GFR > 60 ml/min 08/25/21 04:25 BUN/Creatinine Ratio 25 % 08/25/21 04:25 Glucose 65 mg/dL (65-100) 08/25/21 04:25 Calcium 9.1 mg/dL (8.4-10.2) 08/25/21 04:25 Total Bilirubin 0.90 mg/dL (0.1-1.2) 08/25/21 04:25 AST 45 units/L (5-40) H 08/25/21 04:25 ALT 33 units/L (7-56) 08/25/21 04:25 Alkaline Phosphatase 96 units/L (35-129) 08/25/21 04:25 Total Protein 7.8 g/dL (6.3-8.2) 08/25/21 04:25 Albumin 3.7 g/dL (3.9-5) L 08/25/21 04:25 Albumin/Globulin Ratio 0.9 % 08/25/21 04:25 Lipase 33 units/L (13-60) 08/25/21 04:25 Plasma/Serum Alcohol < 0.01 % (0-0.07) 08/25/21 04:25 Assessment and Plan VTE prophylaxis?: Chemical Plan of care discussed with patient/family: Yes - Patient Problems (1) Alcohol withdrawal Current Visit: Yes Status: Acute Qualifiers: Complication of substance-induced condition: with unspecified complication Qualified Code(s): F10.239 - Alcohol dependence with withdrawal, unspecified Plan to address problem: Admit the patient to the medical telemetry. Put the patient on cardiac diet. D5 half-normal saline at the rate 200 cc/h. Ativan as per [facility] protocol. Thiamine 100 mg IV daily and folic acid 1 mg p.o. daily we also can put the patient on banana bag (2) Intractable nausea and vomiting Current Visit: Yes Status: Acute Plan to address problem: Zofran 4 mg IV every 6 hours as needed. Pepcid 20 mg every 12 hours . D5 half- normal saline at the rate of 100 cc/h. we will monitor the patient closely (3) Seizure Current Visit: No Status: Acute Plan to address problem: Stable. We will put her on Ativan for seizure precaution. We will monitor the patient closely (4) DVT prophylaxis Current Visit: No Status: Acute Plan to address problem: Heparin 5000 units subcu every 8 hours for DVT prophylaxis. C 20 mg p.o. twice daily for GI prophylaxis. Patient is a full code
[2021-08-25] MEDS ORDERED: THIAMINE 100 MG, FOLIC ACID 1 MG, MULTIPLE VITAMIN INJ, ADULT 10 ML in SODIUM CHLORIDE ... IV ONE (06:16)
[2021-08-25] MEDS ORDERED: FOLIC ACID 1 MG, THIAMINE 100 MG, MULTIPLE VITAMIN INJ, ADULT 10 ML in SODIUM CHLORIDE ... IV SCH (07:00)
[2021-08-25] MEDS ORDERED: D5W/0.45% NACL 1,000 ML IV SCH (07:00)
[2021-08-25] MEDS ORDERED: 1: FOLIC ACID 1 MG, MULTIPLE VITAMIN INJ, ADULT 10 ML, THIAMINE 100 MG in SODIUM CHLORID IV SCH (07:00)
[2021-08-25] MEDS: IPRATROPIUM/ALBUTEROL SULFATE 3 ML AMPUL.NEB IH SCH ×2 (07:36→13:30)
[2021-08-25] MEDS ORDERED: FAMOTIDINE 20 MG/2 ML INJ IV SCH (10:00)
[2021-08-25] MEDS ORDERED: amLODIPine 5 MG TAB PO SCH (10:00)
[2021-08-25] MEDS ORDERED: SODIUM CHLORIDE 0.9% 1000 ML 1,000 ML IV SCH (14:00)
[2021-08-25] MEDS ORDERED: HEPARIN 5,000 UNIT/1 ML VIAL SUB-Q SCH (14:00)
[2021-08-25 16:05] VITALS: BP 124/88
[2021-08-25 17:40] LABS: Anisocytosis 1+; Band Neutrophils # (Manual) 0.1 K/mm3; Total Cells Counted 100
[2021-08-25 17:41] LABS: Large Platelets Few
== END 2021-08-25 16:23 | disposition home or self-care (01) | DRG 101 ==
LOC: ED 02:17 → 3A 06:05 → OBSVTOIN 09:25
PROVIDERS: ADMIT Hospitalist; ATTEND Internal Medicine
DX: R56.9 Unspecified convulsions (principal); F10.239 Alcohol dependence with withdrawal, unspecified; I10 Essential (primary) hypertension; F17.200 Nicotine dependence, unspecified, uncomplicated
CPT/HCPCS: 36415; 80053; 80320; 83690; 85007; 85025; G0378; G0480; J2060; J2405; J3411; J7030

== ENCOUNTER 2022-06-05 23:25 | Emergency (ER) | payer MEDICAID | END 2022-06-06 01:02 | disposition left against medical advice (07) | LOC: ED 23:25 | DX: R11.10 Vomiting, unspecified (principal); R06.02 Shortness of breath; Z53.21 Procedure and treatment not carried out due to patient leaving prior to being seen by health care provider ==